=== PATIENT | male | born 1940 | race Caucasian/White ===

== ENCOUNTER → 2018-07-09 | Outpatient (CLI) | payer MEDICARE ==
[2018-07-09 13:48] LABS: PROSTATIC SPECIFIC AG MONITOR < 0.01 NG/ML (< 4.0)
== END ==
LOC: M LAB 11:41
DX: Z08 Encounter for follow-up examination after completed treatment for malignant neoplasm (principal); Z85.46 Personal history of malignant neoplasm of prostate
CPT/HCPCS: 84153

== ENCOUNTER → 2019-07-13 | Outpatient (REF) | payer MEDICARE | LOC: M LABDRAW1 09:27 | PROVIDERS: ATTEND Physician Assistant | DX: Z85.46 Personal history of malignant neoplasm of prostate (principal) ==

== ENCOUNTER → 2019-10-28 | Outpatient (REF) | payer MEDICARE ==
[2019-10-29 16:58] LABS: IRON (FE) 69 UG/DL (65-175); PERCENT SATURATION 18.9 % (19.7-50.0); TOTAL IRON BINDING CAPACITY 366 UG/DL (250-450); TOTAL PROTEIN 8.7 GM/DL (6.4-8.2)
[2019-11-01 09:46] LABS: HEPATITIS B SURFACE ANTIGEN NEGATIVE (NEGATIVE)
[2019-11-01 10:14] LABS: HEPATITIS C VIRUS ABY INDEX 0.1 INDEX (<0.8)
[2019-11-01 10:15] LABS: HEPATITIS B CORE ANTIBODY IGM NEGATIVE (NEGATIVE)
[2019-11-01 10:16] LABS: HEPATITIS A ANTIBODY IGM NEGATIVE (NEGATIVE)
[2019-11-02 11:20] LABS: ALBUMIN 3.85 GM/DL (3.29-5.55); ALBUMIN % 44.3 % (55.8-66.1); ALPHA-1-GLOBULIN % 3.5 % (2.9-4.9); ALPHA-2-GLOBULINS 0.71 GM/DL (0.42-0.99); ALPHA-2-GLOBULINS % 8.2 % (7.1-11.8); BETA-1-GLOBULINS 0.49 GM/DL (0.28-0.60); BETA-1-GLOBULINS % 5.6 % (4.7-7.2); BETA-2-GLOBULINS 0.29 GM/DL (0.19-0.55); BETA-2-GLOBULINS % 3.3 % (3.2-6.5); GAMMA GLOBULIN % 35.1 % (11.1-18.8); GAMMA GLOBULINS 3.05 GM/DL (0.65-1.58)
== END ==
LOC: M LAB REF 16:04
PROVIDERS: ATTEND Internal Medicine
DX: R74.8 Abnormal levels of other serum enzymes (principal); N18.3 Chronic kidney disease, stage 3 (moderate)

== ENCOUNTER 2020-02-15 12:05 | Inpatient (IN) | payer MEDICARE ==
[~2020-02-15] VITALS: Ht 170.2 cm; Wt 67.4 kg
[2020-02-15] MEDS ORDERED: NITR0.4S14 SL (12:26)
[2020-02-15] MEDS ORDERED: GLIM1TAB4 PO (12:26)
[2020-02-15] MEDS ORDERED: TAMS1CAP17 PO (12:26)
[2020-02-15] MEDS ORDERED: ASPI81TA85 PO (12:26)
[2020-02-15] MEDS ORDERED: ATOR40TA75 PO (12:26)
[2020-02-15 13:55] LABS: BASO % 0.5 % (0.0-1.0); EOS # 0.1 10^3/uL (0.0-0.5); EOS % 1.7 % (0.0-3.0); HEMATOCRIT 43.1 % (42.0-52.0); HEMOGLOBIN 14.3 g/dl (13.5-17.5); LYMPH # 1.3 10^3/uL (1.5-5.0); LYMPH % 19.7 % (24.0-44.0); MEAN CORPUSCULAR HEMOGLOBIN 31.8 pg (27.0-33.0); MEAN CORPUSCULAR HGB CONC 33.2 g/dl (32.0-36.5); MONO # 1.1 10^3/uL (0.0-0.8); MONO % 16.5 % (0.0-5.0); NEUTROPHILS # 3.9 10^3/uL (1.5-8.5); NEUTROPHILS % 61.3 % (36.0-66.0); RED BLOOD COUNT 4.49 10^6/uL (4.30-6.10); WHITE BLOOD COUNT 6.4 10^3/uL (4.0-10.0)
[2020-02-15 14:17] LABS: ALBUMIN 2.3 GM/DL (3.2-5.2); BILIRUBIN,DIRECT 1.4 MG/DL (0.0-0.2); BILIRUBIN,TOTAL 2.9 MG/DL (0.2-1.0); CREATININE FOR GFR 1.24 MG/DL (0.70-1.30); POTASSIUM SERUM 3.7 MEQ/L (3.5-5.1); TOTAL PROTEIN 7.5 GM/DL (6.4-8.2)
[2020-02-15 14:38] LABS: PLATELET COUNT, AUTOMATED 65 10^3/uL (150-450)
[2020-02-15] MEDS ORDERED: ISOVUE-370 76% 100ML VIAL As Ordered ONE (16:00)
[2020-02-15] MEDS ORDERED: D 202000 PO (18:29)
[2020-02-15] MEDS ORDERED: DEXTROSE 50% 50 ML SYRINGE IV PRN (18:45)
[2020-02-15] MEDS ORDERED: GLUCOSE 4GM CHEW TABLET PO PRN (18:45)
[2020-02-15] MEDS ORDERED: GLUCAGON INJ 1MG VIAL SC PRN (18:45)
[2020-02-15 19:34] LABS: INR 1.74; PROTHROMBIN TIME 20.1 SECONDS (11.8-14.0)
[2020-02-15 19:35] LABS: PARTIAL THROMBOPLASTIN TIME 36.8 SECONDS (25.0-38.4)
[2020-02-15 20:50] VITALS: BP 129/62
[2020-02-15] MEDS: HumaLOG INSULIN (NovoLOG) PER UNIT SC SCH (21:00)
[2020-02-15 21:15] LABS: HEMOGLOBIN A1c 6.2 %
--- NOTE | 2020-02-15 23:47 | REP ---
CT ABDOMEN AND PELVIS WITH IV CONTRAST: TECHNIQUE: Axial contrast-enhanced images from the lung bases to the pubic symphysis using 100 mL Isovue-370 intravenous contrast material with multiplanar reformations. There is a moderate right pleural effusion. Mild patchy parenchymal opacities seen in the lung bases, right greater than left, representing atelectasis or infiltrate. Liver has a cirrhotic appearance. No enhancing liver mass is seen. The spleen is enlarged with a length of 16.9 cm. There is a small cyst in the posterolateral spleen measuring 1 cm. Portal vein is mildly dilated, compatible with portal hypertension. Adrenals are normal. Pancreas demonstrates no definite abnormality. There is no pancreatic duct dilatation. There appear to be small renal cysts bilaterally without evidence of hydronephrosis. There is mild ectasia of the distal abdominal aorta with no aneurysm. There are atherosclerotic calcifications of the thoracic aorta. Subcentimeter para-aortic lymph nodes are present. There is no free air. There is moderate diffuse abdominal and pelvic ascites. There is diffuse colonic diverticulosis. There is a small umbilical hernia and small bilateral inguinal hernias containing fat. Urinary bladder is not well distended and not well evaluated. Multiple metallic clips are seen in the prostate. There are mild degenerative changes of the spine with no definite suspicious bone lesion. IMPRESSION: Moderate right effusion. Mild bibasilar atelectasis/infiltrate, right greater than left. Moderate diffuse abdominal and pelvic ascites. Cirrhosis of the liver with portal hypertension and mild splenomegaly. Pancreas is grossly unremarkable. This does not exclude pancreatitis. Electronically Signed by Chavez Gipson MD 02/16/2020 09:20 A
[2020-02-16] VITALS (7 sets, daily range): BP systolic 110–136; BP diastolic 57–68
[2020-02-16 00:45] LABS: CK-MB VALUE MASS 3.2 NG/ML (<3.6); MB/CK RELATIVE INDEX 2.19 (< OR =4); TROPONIN I 0.04 NG/ML (< 0.10)
[2020-02-16 06:11] LABS: CK-MB VALUE MASS 2.7 NG/ML (<3.6); MB/CK RELATIVE INDEX 1.84 (< OR =4); THYROID STIMULATING HORMONE 1.49 uIU/ML (0.358-3.740); TROPONIN I 0.04 NG/ML (< 0.10)
[2020-02-16] MEDS: HumaLOG INSULIN (NovoLOG) PER UNIT SC SCH ×4 (07:30→20:07)
[2020-02-16] MEDS: TAMSULOSIN 0.4 MG CAP PO SCH (09:33)
[2020-02-16] MEDS: ATORVASTATIN 20 MG TAB PO SCH (09:33)
--- NOTE | 2020-02-16 13:52 | HPE ---
DATE OF ADMISSION: 02/15/2020 CHIEF COMPLAINT: Shortness of breath. Increasing abdominal distention,weight gain of 20 pounds over the past month. HISTORY OF PRESENT ILLNESS: Jaida hinton is a 79-year-old male with a history of alcoholic liver cirrhosis, chronic obstructive pulmonary disease (COPD), coronary artery disease (CAD), coronary artery bypass graft (CABG)diabetes, hypertension, hypercholesterolemia, glaucoma, hypertensive and diabetic retinopathy and prostate cancer with seed implants and radiation presents to the emergency room with 1-month history of worsening shortness of breath, increase in abdominal distention. The patient has noted increase in weight from 152 to 170 pounds with worsening shortness of breath initially with exertion and is unable to mow his lawn and has to stop two to three times. Even at rest unable to sleep flat on the bed. Patient has had no history of heart failure. Denies any chest pain, pressure, tightness, fever or chills. Patient has had a decrease in appetite and had nausea about a month ago an vomited once then but none since. He presents today for further evaluation. He has a known history of live cirrhosis from alcohol. Previously drank gin and bourbon on the [place], three shots and two beers daily for the past 30 years. Quit alcohol use 3 months ago and follows with Dr. Bentley as an outpatient. He describes the abdominal discomfort throughout but worse in the left lower quadrant. Has gurgling, "like I am going to have a bowel movement". Describes a 3/10 on the pain scale while he is sitting and worse at 8/10. He has not taken any Tylenol or nonsteroidal anti-inflammatory drugs (NSAIDs) for this at home. Patient has had prior history of alcoholic pancreatitis from years ago but has been stable since. Patient otherwise denies any chest pain, pressure or tightness. No history of congestive heart failure in the past but has had, what he says, is quadruple bypass with an inferior myocardial infarction (NC) in 1989. PAST MEDICAL HISTORY: Coronary artery disease (CAD), CABG COPD. Prostate cancer. Type 2 diabetes. Hypertension. Hypercholesterolemia. Diverticulosis. Presbycusis with bilateral hearing aides. Glaucoma, open angle. Hypertensive diabetic retinopathy. Pertussis, measles and mumps. ALLERGIES: Penicillin causing anaphylaxis. PAST SURGICAL HISTORY: Bilateral implants. Prostate cancer with seed implantation, radiation in 2001. Coronary artery disease, myocardial infarction inferior wall. CABG times four vessels 1989. Left ankle open reduction internal fixation (ORIF). Vasectomy 1971. Cholecystectomy 1968. HOME MEDICATIONS: - aspirin 81 daily - atorvastatin 40 daily - glimepiride 1 mg daily - nitroglycerine 0.4 as needed - tamsulosin 0.4 mg daily SOCIAL HISTORY: Patient has smoked a pack of day since the age of 16. Currently decreased to less than 7-8 cigarettes per day. He previously drank gin and bourbon on the rocks about three of them and two beers every day for about 30 years, quit 3 months ago. 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 His is a retired registered nurse. She is the health care proxy. FAMILY HISTORY: Mother , age 43 with cerebrovascular accident (CVA) after nephrectomy. Father age 63 with coronary artery disease and NC and was an alcoholic. REVIEW OF SYSTEMS: Per history of present illness (HPI). 12-point system otherwise negative. PHYSICAL EXAMINATION: Temperature 97.9, pulse 65, respiratory rate 18, blood pressure 135/65, 96% on room air. Generally, patient is awake, alert, oriented times three answering questions appropriately. Anicteric sclerae. No jaundice. No jugular venous distention (JVD) or thyromegaly. Lungs diminished with dullness on the right base. Heart S1, S2, sinus rhythm. No murmurs, rubs or gallops. Patient has a midsternal scar that is well healed. Abdomen is soft. It is distended. Positive fluid waves, left lower quadrant is slightly tender. No rebound or guarding. No abdominal bruits. Extremities: Trace pitting edema. LABORATORY DATA: White count 6.4, hemoglobin 13, hematocrit 43, platelet count 65. Sodium 139, potassium 3.7, chloride 109, bicarbonate 26, BUN 9, creatinine 1.24, glucose 88. Calcium 8, T-bilirubin 2.9, direct bilirubin 1.3, AST 105, ALT 71, alkaline phosphatase 91, total protein 7.5, albumin 2.3, lipase 435. Urinalysis: Trace ketones 1+, bilirubin 4, 0 urobilinogen negative leukocyte esterase, 3 WBC1, RBC. Negative bacteria. IMAGING STUDIES: CT abdomen and pelvis pending official report. ASSESSMENT/PLAN: This is a 79-year-old male with history of coronary artery disease CABG. No prior history of congestive heart failure. Hypertension, hypercholesterolemia, diabetes, chronic obstructive pulmonary disease (COPD), who smoked and drank until about 3 months ago. Hypertensive diabetic retinopathy, liver cirrhosis secondary to alcohol abuse with portal hypertension and ascites. Diverticulosis, prostate cancer, presents to the emergency room with 1-month history of increasing shortness of breath with dyspnea on exertion as well as increasing ascites with abdominal pain in the left lower quadrant along with weight gain of about 17 pounds over the past month. IMPRESSION: 1. Decompensated liver cirrhosis secondary to alcohol abuse. Patient has significant ascites with no fever or chills. Patient is ordered a paracentesis in the morning. Patient's platelet count is 65,000, which is adequate. Will check a PT/INR due to known coagulopathy that occurs with decompensated liver cirrhosis. Patient is currently managed by his primary care physician, has not been referred to a entertainer or variety artist. Last drink was 3 months ago with a good support system. Would encourage outpatient referral to entertainer or variety artist in [place]. MELD score could not be calculated as patient does not have an INR at this time. Will obtain. 2. Pleural effusion secondary to decompensated liver cirrhosis. Will check a 2D echo in light of the prior history of coronary artery disease, inferior wall NC and CABG. 3. Diabetes: Continue on consistent carbohydrate diet. Fluid restriction for ascites. Sliding scale. 4. History of prostate cancer: Status post seed implantation and radiation. Currently stable. Follows with Dr. Judd as an outpatient. 5. Hypercholesterolemia. Check lipid panel in the morning. Continue on atorvastatin. 6. History of CAD and CABG: Hold off on patient's aspirin due to paracentesis and thoracentesis in the morning. [facility]
[2020-02-16 14:05] LABS: APPEARANCE, BODY FLUID HAZY (CLEAR); ASCITES FL COLOR YELLOW (COLORLESS); SOURCE, BODY FLUID ASCITES; SPEC. GRAVITY BODY FLUIDS 1.018 (NOT ESTABLISHED)
[2020-02-16 14:09] LABS: PH BODY FLUID 7.736 UNITS (NOT ESTABLISHED); SOURCE, BODY FLUID pH ASCITES
[2020-02-16 14:27] LABS: AMYLASE, BODY FLUID 50 U/L (NOT ESTABLISHED); LDH, BODY FLUID 77 U/L (NOT ESTABLISHED); SOURCE, BODY FLUID ALBUMIN ASCITES; SOURCE, BODY FLUID AMYLASE ASCITES; SOURCE, BODY FLUID GLUCOSE ASCITES; SOURCE, BODY FLUID LDH ASCITES; SOURCE, BODY FLUID TOT PROTEIN ASCITES; TOTAL PROTEIN, BODY FLUID 2.6 G/DL (NOT ESTABLISHED)
--- NOTE | 2020-02-16 16:15 | IPNPDOC ---
Date Seen The patient was seen on 02/16/20. Progress Note still c/o cough and pleuritic chest pain with coughing fits. no sob. no fever or chills. still with abd discomfort 6/10 at worst when walking. no dizziness. paracentesis today. no other c/o overnight. physical exam vs: pls see below Generally, patient is awake, alert, oriented times three answering questions appropriately. Anicteric sclerae. No jaundice. No jugular venous distention (JVD) or thyromegaly. Lungs diminished with dullness on the right base. Heart S1, S2, sinus rhythm. No murmurs, rubs or gallops. Patient has a midsternal scar that is well healed. Abdomen is soft. It is distended. Positive fluid waves, left lower quadrant is slightly tender. No rebound or guarding. No abdominal bruits. Extremities: Trace pitting edema. LABORATORY DATA: pls see below IMAGING STUDIES: CT abdomen and pelvis pending official report. ASSESSMENT/PLAN: This is a 79-year-old male with history of coronary artery disease CABG. No prior history of congestive heart failure. Hypertension, hypercholesterolemia, diabetes, chronic obstructive pulmonary disease (COPD), who smoked and drank until about 3 months ago. Hypertensive diabetic retinopathy, liver cirrhosis secondary to alcohol abuse with portal hypertension and ascites. Diverticulosis, prostate cancer, presents to the emergency room with 1-month history of increasing shortness of breath with dyspnea on exertion as well as increasing ascites with abdominal pain in the left lower quadrant along with weight gain of about 17 pounds over the past month. IMPRESSION: 1. Decompensated liver cirrhosis secondary to alcohol abuse. Patient has significant ascites with no fever or chills. MELD score 19. s/p paracentesis 02/16/20. albumin infusion and lasix, spironolactone, propranlol 2. Pleural effusion secondary to decompensated liver cirrhosis. Will check a 2D echo in light of the prior history of coronary artery disease, inferior wall NH and CABG.thoracentesis in am. 3. Diabetes: Continue on consistent carbohydrate diet. Fluid restriction for ascites. Sliding scale. 4. History of prostate cancer: Status post seed implantation and radiation. Currently stable. Follows with Dr. Judd as an outpatient. 5. Hypercholesterolemia. Check lipid panel in the morning. Continue on atorvastatin. 6. History of CAD and CABG: Hold off on patient's aspirin due to thoracentesis in the morning. VS, I&O, 24H, Fishbone Vital Signs/I&O Vital Signs Date Time Temp Pulse Resp B/P (MAP) Pulse Ox O2 Delivery O2 Flow Rate FiO2 02/16/20 13:56 97.7 93 18 119/57 (77) 90 Room Air I&O- Last 24 Hours up to 6 AM 02/16/20 06:00 Intake Total 300 ml Output Total 300 ml Balance 0 ml Laboratory Data 24H LABS Laboratory Tests 2 02/15/20 19:01: Prothrombin Time 20.1H, Prothromb Time International Ratio 1.74, Activated Part ial Thromboplast Time 36.8, Estimated Mean Plasma Glucose 131H, Hemoglobin A1c 6.2 02/15/20 20:51: Bedside Glucose (Misc Panel) 132H 02/15/20 23:59: Total Creatine Kinase 146, Creatine Kinase MB 3.2, Creatine Kinase MB Relative Index 2.19, Troponin I 0.04 02/16/20 04:40: Bedside Glucose (Misc Panel) 89 02/16/20 05:08: Total Creatine Kinase 147, Creatine Kinase MB 2.7, Creatine Kinase MB Relative Index 1.84, Troponin I 0.04, Triglycerides Level 79, Total Cholesterol 60, LDL Cholesterol 24, Non-HDL Cholesterol (LDL + VLDL) 40, Total HDL Cholesterol 20L, Cholesterol/HDL Ratio 3.000, Thyroid Stimulating Hormone (TSH) 1.490 02/16/20 11:28: Bedside Glucose (Misc Panel) 73L 02/16/20 12:50: Body Fluid Source ASCITES, Body Fluid Color YELLOW, Body Fluid Appearance HAZY, Body Fluid Specific Gratis 1.018, Body Fluid pH 7.736, Body Fluid pH Source ASCITES, Body Fluid WBC (Auto) 561H, Body Fluid RBC (Auto) 3, Body Fluid Mononuclear Cells % Auto 96.3H, Fluid Polymorphonuclear Cell % Auto 3.7H, Body Fluid Glucose Source ASCITES, Body Fluid Glucose 88, Body Fluid Protein Source ASCITES, Body Fluid Total Protein 2.6, Body Fluid Albumin Source ASCITES, Body Fluid Albumin 0.8, Body Fluid LDH Source ASCITES, Body Fluid Lactate Dehydrogenase 77, Body Fluid Amylase Source ASCITES, Body Fluid Amylase 50 Microbiology Microbiology 02/16/20 Acid Fast Stain, Received Pending 02/16/20 Mycobacterial Culture, Received Pending 02/16/20 Fungal Smear, Received Pending 02/16/20 Fungal Culture, Received Pending 02/16/20 Gram Stain - Final, Resulted 02/16/20 Body Fluid Culture, Resulted Pending ESDRAS LANDERS MD February 16, 2020 16:11
[2020-02-16] MEDS: SPIRONOLACTONE 25 MG TAB PO SCH (17:05)
[2020-02-16] MEDS: FUROSEMIDE 20MG/2ML VIAL (J1940) IV SCH ×2 (17:06→22:58)
[2020-02-16 17:26] LABS: ALBUMIN 1.9 GM/DL (3.2-5.2); BILIRUBIN,TOTAL 1.9 MG/DL (0.2-1.0); CALCIUM LEVEL 7.8 MG/DL (8.8-10.2); CREATININE FOR GFR 1.29 MG/DL (0.70-1.30); GLOMERULAR FILTRATION RATE 57.3 (>42); TOTAL PROTEIN 6.2 GM/DL (6.4-8.2)
[2020-02-16 17:32] LABS: BASO % 0.4 % (0.0-1.0); EOS # 0.1 10^3/uL (0.0-0.5); EOS % 1.9 % (0.0-3.0); HEMATOCRIT 38.4 % (42.0-52.0); HEMOGLOBIN 12.8 g/dl (13.5-17.5); LYMPH % 20.9 % (24.0-44.0); MEAN CORPUSCULAR HEMOGLOBIN 32.5 pg (27.0-33.0); MEAN CORPUSCULAR HGB CONC 33.3 g/dl (32.0-36.5); MEAN CORPUSCULAR VOLUME 97.5 fl (80.0-96.0); MONO # 0.8 10^3/uL (0.0-0.8); NEUTROPHILS # 2.8 10^3/uL (1.5-8.5); NEUTROPHILS % 59.4 % (36.0-66.0); RED BLOOD COUNT 3.94 10^6/uL (4.30-6.10); WHITE BLOOD COUNT 4.7 10^3/uL (4.0-10.0)
[2020-02-16 17:43] LABS: PLATELET COUNT, AUTOMATED 55 10^3/uL (150-450)
[2020-02-16] MEDS ORDERED: ALPRAZolam 0.5 MG TAB PO PRN (19:00)
[2020-02-16] MEDS ORDERED: ALPRAZolam 0.5 MG TAB PO ONE (19:00)
[2020-02-16] MEDS: PROPRANOLOL 10 MG TAB PO SCH (20:03)
[2020-02-17] VITALS (9 sets, daily range): BP systolic 102–115; BP diastolic 49–63
[2020-02-17] MEDS: FUROSEMIDE 20MG/2ML VIAL (J1940) IV SCH (05:20)
[2020-02-17 08:11] LABS: HEMATOCRIT 39.4 % (42.0-52.0); HEMOGLOBIN 13.1 g/dl (13.5-17.5); MEAN CORPUSCULAR HEMOGLOBIN 31.7 pg (27.0-33.0); MEAN CORPUSCULAR HGB CONC 33.2 g/dl (32.0-36.5); MEAN CORPUSCULAR VOLUME 95.4 fl (80.0-96.0); RED BLOOD COUNT 4.13 10^6/uL (4.30-6.10); WHITE BLOOD COUNT 5.4 10^3/uL (4.0-10.0)
[2020-02-17 08:20] LABS: PLATELET COUNT, AUTOMATED 60 10^3/uL (150-450)
[2020-02-17] MEDS: ATORVASTATIN 20 MG TAB PO SCH (08:20)
[2020-02-17] MEDS: HumaLOG INSULIN (NovoLOG) PER UNIT SC SCH ×2 (08:20→12:00)
[2020-02-17] MEDS: SPIRONOLACTONE 25 MG TAB PO SCH (08:21)
[2020-02-17] MEDS: PROPRANOLOL 10 MG TAB PO SCH (08:21)
[2020-02-17] MEDS: TAMSULOSIN 0.4 MG CAP PO SCH (08:21)
--- NOTE | 2020-02-17 08:23 | ECHO ---
DATE OF STUDY: 02/16/2020 REFERRING PHYSICIAN: Dr. Minoo Avila INDICATION: Dyspnea. HEIGHT: 170 cm. WEIGHT: 74 kg. 2-D MEASUREMENTS: Aortic root: 3.1 cm Left atrium: 4.3 cm Ventricular septum: 1.28 cm Posterior wall: 1.02 cm Left ventricle diastole: 4.8 cm Aortic annulus: 1.9 cm Inferior vena cava: 1.2 cm (more than 50% respiratory variation) DOPPLER MEASUREMENTS: No aortic regurgitation No aortic stenosis Aortic valve velocity: 143 cm/sec LVOT velocity: 90.3 cm/sec LVOT VTI: 18.9 cm Trace mitral regurgitation Mitral E velocity: 54.3 cm/sec Mitral A velocity: 90.7 cm/sec Mitral deceleration time: 333 ms Very mild tricuspid regurgitation Estimated right ventricular systolic pressure 26-31 mmHg assuming a right atrial pressure of 5-10 mmHg Pulmonary acceleration time: 100 ms MITRAL ANNULAR TISSUE DOPPLER: E prime septal: 7.3 cm/sec E prime lateral: 11.4 cm/sec DESCRIPTION: The rhythm was sinus. Image quality was good. Occasional PVCs. This was a 2-D, M-mode, color flow Doppler and pulse wave Doppler examination and included mitral annular tissue Doppler. CONCLUSIONS: 1. Mild focal hypertrophy of the basal anterior ventricular septum. No dynamic LVOT obstruction. Normal regional LV wall motion and wall thickening. Normal LV systolic function. LVEF 60% by visual estimate. Grade 1 LV diastolic dysfunction (impaired relaxation filling pattern). 2. Mild left atrial dilatation. 3. Small pericardial effusion. No diastolic chamber collapse. No significant respiratory variation of intracardiac velocities. 4. Very mild aortic valve sclerosis of a 3-cuspid aortic valve. No aortic regurgitation. 5. Bilateral pleural effusions.
[2020-02-17 08:41] LABS: ALBUMIN 2.1 GM/DL (3.2-5.2); BILIRUBIN,TOTAL 1.7 MG/DL (0.2-1.0); CALCIUM LEVEL 7.9 MG/DL (8.8-10.2); CREATININE FOR GFR 1.31 MG/DL (0.70-1.30); GLOMERULAR FILTRATION RATE 56.3 (>42); POTASSIUM SERUM 3.5 MEQ/L (3.5-5.1); TOTAL PROTEIN 6.7 GM/DL (6.4-8.2)
--- NOTE | 2020-02-17 10:08 | REP ---
CHEST, SINGLE VIEW: Single view of the chest is performed. COMPARISON: CT 02/15/2020 and chest 06/24/2008. There is likely a subpulmonic right effusion. There is adjacent right basilar atelectasis/infiltrate. The left lung is clear. The heart is not enlarged. There is calcification and tortuosity of the thoracic aorta. Multiple sternal wires are present. Electronically Signed by Chavez Gipson MD 02/17/2020 12:40 P
[2020-02-17 10:11] LABS: MAGNESIUM LEVEL 1.5 MG/DL (1.8-2.4)
--- NOTE | 2020-02-17 11:14 | REP ---
Ultrasound-guided paracentesis The procedure was performed under the direct supervision of Dr. Gipson. The risks and benefits of the procedure were explained to the patient and informed consent was obtained. The largest pocket of fluid was localized in the left upper quadrant using ultrasound guidance. The skin was prepped and draped in a sterile fashion. 1% lidocaine was used as a local anesthetic. Using ultrasound guidance and 8-Czech multi side-hole catheter was inserted using trocar technique. 3200 ml of yellow fluid was withdrawn with a sample sent to the lab for analysis. The patient tolerated the procedure well and there were no immediate complications. After the appropriate amount of monitored convalescence the patient was discharged from the department. Electronically Signed by ILIA Hernandez 02/16/2020 05:20 P Electronically Signed by Chavez Gipson MD 02/17/2020 11:05 A
[2020-02-17 13:11] LABS: PH BODY FLUID 7.682 UNITS (NOT ESTABLISHED); SOURCE, BODY FLUID pH PLEURAL
[2020-02-17 13:31] LABS: AMYLASE, BODY FLUID 52 U/L (NOT ESTABLISHED); CHOLESTEROL, BODY FLUID < 50 MG/DL (NOT ESTABLISHED); LDH, BODY FLUID 146 U/L (NOT ESTABLISHED); SOURCE, BODY FLUID ALBUMIN PLEURAL; SOURCE, BODY FLUID AMYLASE PLEURAL; SOURCE, BODY FLUID CHOL PLEURAL; SOURCE, BODY FLUID GLUCOSE PLEURAL; SOURCE, BODY FLUID LDH PLEURAL; SOURCE, BODY FLUID TOT PROTEIN PLEURAL; SOURCE, BODY FLUID TRIG PLEURAL; TOTAL PROTEIN, BODY FLUID 3.5 G/DL (NOT ESTABLISHED); TRIGLYCERIDE, BODY FLUID 24 MG/DL (NOT ESTABLISHED)
[2020-02-17 13:45] LABS: APPEARANCE, BODY FLUID CLOUDY (CLEAR); PLEURAL FL COLOR YELLOW (COLORLESS); SOURCE, BODY FLUID PLEURAL
[2020-02-17 14:21] LABS: BLOOD UREA NITROGEN 13 MG/DL (7-18); CALCIUM LEVEL 7.5 MG/DL (8.8-10.2); CARBON DIOXIDE LEVEL 24 MEQ/L (21-32); CHLORIDE LEVEL 107 MEQ/L (98-107); GLOMERULAR FILTRATION RATE > 60.0 (>42); GLUCOSE, FASTING 140 MG/DL (70-100); POTASSIUM SERUM 3.3 MEQ/L (3.5-5.1); SODIUM LEVEL 136 MEQ/L (136-145)
[2020-02-17] MEDS ORDERED: SPIR-10 PO (15:29)
[2020-02-17] MEDS ORDERED: POTASSIUM CHLORIDE 10 MEQ SR TABLET PO ONE (15:30)
[2020-02-17] MEDS ORDERED: SELF1KIT MC (15:30)
--- NOTE | 2020-02-17 15:46 | REP ---
CHEST, TWO VIEWS: Two views of the chest was performed status post right thoracentesis. There is decreased right pleural fluid which appeared to be subpulmonic on prior chest radiograph today. Residual parenchymal opacity in the right lung base. There is no pneumothorax. Left lung remains clear. Heart and mediastinum are unchanged. IMPRESSION: No pneumothorax status post right thoracentesis with decreased right pleural fluid. Electronically Signed by Chavez Gipson MD 02/17/2020 05:06 P
--- NOTE | 2020-02-17 17:12 | REP ---
ULTRASOUND-GUIDED RIGHT THORACENTESIS The procedure was performed under the direct supervision of Dr. Gipson. The risks and benefits of the procedure were explained to the patient and informed consent was obtained. The right pleural effusion was localized using ultrasound guidance. The skin was prepped and draped in a sterile fashion. 1% lidocaine was used as a local anesthetic. An 8-Chinese multi side-hole catheter was inserted using trocar technique. 1100 ml of demetrius colored fluid was withdrawn with a sample sent to lab for analysis. The patient tolerated the procedure well and there were no immediate complications. After the appropriate amount of monitored convalescence the patient was discharged from the department. Electronically Signed by ILIA Hernandez 02/17/2020 02:59 P Electronically Signed by Chavez Gipson MD 02/17/2020 05:02 P
== END 2020-02-17 16:40 | disposition home or self-care (01) | DRG 433 ==
LOC: M ED 12:05 → M ED INP 17:55 → ENRESERV 19:15 → M MS5PR 20:50
PROVIDERS: ADMIT General Practice; ATTEND General Practice
PROC: 0W9G3ZZ Drainage of Peritoneal Cavity, Percutaneous Approach (ICD-10-PCS; principal; 2020-02-16 14:00)
PROC: 0W993ZZ Drainage of Right Pleural Cavity, Percutaneous Approach (ICD-10-PCS; 2020-02-17)
DX: K70.31 Alcoholic cirrhosis of liver with ascites (principal); K76.6 Portal hypertension; J90 Pleural effusion, not elsewhere classified; J44.9 Chronic obstructive pulmonary disease, unspecified; E11.319 Type 2 diabetes mellitus with unspecified diabetic retinopathy without macular edema; I10 Essential (primary) hypertension; E78.00 Pure hypercholesterolemia, unspecified; I25.10 Atherosclerotic heart disease of native coronary artery without angina pectoris; H40.10X0 Unspecified open-angle glaucoma, stage unspecified; Z85.46 Personal history of malignant neoplasm of prostate; Z92.3 Personal history of irradiation; H91.13 Presbycusis, bilateral; Z97.4 Presence of external hearing-aid; Z79.82 Long term (current) use of aspirin; Z79.84 Long term (current) use of oral hypoglycemic drugs; Z79.899 Other long term (current) drug therapy; F17.210 Nicotine dependence, cigarettes, uncomplicated; Z95.1 Presence of aortocoronary bypass graft; Z88.0 Allergy status to penicillin

== ENCOUNTER → 2020-04-27 | Outpatient (REF) | payer MEDICARE ==
[~2020-04-27] MED LIST: ASPI-161 PO; ASPI81TA86 PO; ATOR40TA75 PO; D 202000 PO; FURO20TA2 PO; GLIM1TAB4 PO; LEVA750T7 PO; MAGN400T2 PO; NITR0.4S14 SL; OMEP-218 PO; SELF1KIT MC; SPIR-10 PO; TAMS1CAP17 PO
== END ==
LOC: M LAB REF 16:23
PROVIDERS: ATTEND Internal Medicine
DX: K70.31 Alcoholic cirrhosis of liver with ascites (principal)

== ENCOUNTER → 2020-04-28 | Outpatient (REF) | payer MEDICARE ==
[2020-05-27 01:07] LABS: INR 1.54; PARTIAL THROMBOPLASTIN TIME 41.2 SECONDS (25.0-38.4); PROTHROMBIN TIME 18.8 SECONDS (11.8-14.0)
== END ==
LOC: M LAB REF 11:53
PROVIDERS: ATTEND Internal Medicine
DX: K70.31 Alcoholic cirrhosis of liver with ascites (principal)

== ENCOUNTER → 2020-05-11 | Outpatient (CLI) | payer MEDICARE ==
[2020-05-11 13:34] VITALS: BP 142/64
--- NOTE | 2020-06-16 11:15 | REP ---
LIMITED FOUR QUADRANT ULTRASOUND TO ASSESS FOR ASCITES Four quadrant ultrasonography was performed to assess for degree of ascites. A minimal amount of fluid is seen in all four quadrants, likely insufficient for paracentesis MTDD
== END ==
LOC: M IRPRO 12:04
PROVIDERS: ATTEND Internal Medicine
DX: K70.31 Alcoholic cirrhosis of liver with ascites (principal); Z53.8 Procedure and treatment not carried out for other reasons

== ENCOUNTER → 2020-05-31 | Outpatient (REF) | payer MEDICARE ==
[2020-05-31 19:23] LABS: FOLATE 8.4 NG/ML
== END ==
LOC: M LAB REF 18:15
PROVIDERS: ATTEND Internal Medicine
DX: R53.82 Chronic fatigue, unspecified (principal)

== ENCOUNTER 2020-06-19 19:54 | Inpatient (IN) | payer MEDICARE ==
[~2020-06-19] VITALS: Ht 175.3 cm; Wt 66.4 kg
[~2020-06-19 19:54] MED LIST changes: -ASPI-161 PO; -FURO20TA2 PO; -LEVA750T7 PO; -MAGN400T2 PO; -OMEP-218 PO
[2020-06-19] MEDS ORDERED: NS 1,000 ML IV ONE (20:30)
[2020-06-19] MEDS ORDERED: ACETAMINOPHEN TAB 650MG DOSE (2X325MG) PO ONE (20:30)
[2020-06-19 21:18] LABS: BASO % 0.3 % (0.0-1.0); EOS % 0.3 % (0.0-3.0); HEMATOCRIT 30.7 % (42.0-52.0); HEMOGLOBIN 10.3 g/dl (13.5-17.5); LYMPH # 0.2 10^3/uL (1.5-5.0); LYMPH % 4.4 % (24.0-44.0); MEAN CORPUSCULAR HEMOGLOBIN 32.9 pg (27.0-33.0); MEAN CORPUSCULAR HGB CONC 33.6 g/dl (32.0-36.5); MEAN CORPUSCULAR VOLUME 98.1 fl (80.0-96.0); MONO # 0.4 10^3/uL (0.0-0.8); MONO % 11.7 % (0.0-5.0); NEUTROPHILS % 82.7 % (36.0-66.0); RED BLOOD COUNT 3.13 10^6/uL (4.30-6.10); WHITE BLOOD COUNT 3.6 10^3/uL (4.0-10.0)
[2020-06-19 21:20] LABS: PLATELET COUNT, AUTOMATED 47 10^3/uL (150-450)
[2020-06-19 21:56] LABS: ALT/SGPT 29 U/L (12-78); BILIRUBIN,DIRECT 0.6 MG/DL (0.0-0.2); BILIRUBIN,TOTAL 1.3 MG/DL (0.2-1.0); BLOOD UREA NITROGEN 18 MG/DL (7-18); CALCIUM LEVEL 7.1 MG/DL (8.8-10.2); CARBON DIOXIDE LEVEL 16 MEQ/L (21-32); CHLORIDE LEVEL 117 MEQ/L (98-107); CK-MB VALUE MASS 2.2 NG/ML (<3.6); CPK CREATINE PHOSPHOKINASE 81 U/L (39-308); CREATININE FOR GFR 1.18 MG/DL (0.70-1.30); GLOMERULAR FILTRATION RATE > 60.0 (>42); GLUCOSE, FASTING 163 MG/DL (70-100); MB/CK RELATIVE INDEX 2.72 (< OR =4); NT-PRO BNP 646 PG/ML (<450); POTASSIUM SERUM 3.3 MEQ/L (3.5-5.1); SODIUM LEVEL 144 MEQ/L (136-145); THYROID STIMULATING HORMONE 0.945 uIU/ML (0.358-3.740); THYROXINE (T4) 7.7 UG/DL (4.5-12.0); TOTAL PROTEIN 5.9 GM/DL (6.4-8.2); TROPONIN I 0.07 NG/ML (< 0.10)
[2020-06-19] MEDS ORDERED: OMEP-218 PO (22:06)
--- NOTE | 2020-06-19 22:42 | REPVR ---
PROCEDURE INFORMATION: Exam: XR Chest, 1 View Exam date and time: 06/19/2020 8:30 PM Age: 79 years old Clinical indication: Shortness of breath; Additional info: Dyspnea/cough TECHNIQUE: Imaging protocol: XR of the chest Views: 1 view. COMPARISON: CR POST BX CHEST 02/17/2020 12:11 PM FINDINGS: Lungs: Degree of lung inflation is normal. No evidence of pulmonary edema. No focal consolidation or parenchymal lung mass. Pleural space: No pleural effusion or pneumothorax. Heart/Mediastinum: Cardiac silhouette appears normal. No adenopathy or hilar mass. Bones/joints: Osseous structures show no concerning abnormality. Median sternotomy changes are present. IMPRESSION: No acute or focal cardiopulmonary process. Electronically signed by: aCrlo Pelayo On 06/19/2020 22:41:58 PM
[2020-06-19] MEDS ORDERED: ISOVUE-370 76% 100ML VIAL As Ordered ONE (23:31)
[2020-06-20] VITALS (18 sets, daily range): BP systolic 100–134; BP diastolic 40–67
--- NOTE | 2020-06-20 00:05 | REPVR ---
PROCEDURE INFORMATION: Exam: CT Abdomen And Pelvis With Contrast Exam date and time: 06/19/2020 11:43 PM Age: 79 years old Clinical indication: Fever; Additional info: Fever unknown origin, prostate cancer TECHNIQUE: Imaging protocol: Computed tomography of the abdomen and pelvis with intravenous contrast. Radiation optimization: All CT scans at this facility use at least one of these dose optimization techniques: automated exposure control; mA and/or kV adjustment per patient size (includes targeted exams where dose is matched to clinical indication); or iterative reconstruction. Contrast material: ISOVUE 370; Contrast volume: 100 ml; Contrast route: INTRAVENOUS (IV); COMPARISON: SR CT ABD/PEL W/IV CONTRAST ONLY 02/15/2020 4:08 PM FINDINGS: Liver: Liver appears cirrhotic with nodular peripheral contours. No focal hepatic lesion. Gallbladder and bile ducts: Gallbladder is surgically absent. Pancreas: Pancreas appears normal. No focal mass or peripancreatic inflammation. Spleen: Spleen is enlarged with no focal hepatic lesion aside from a stable posterior splenic cyst. Adrenals: Adrenal glands are normal in appearance. Kidneys and ureters: Kidneys are unremarkable aside from an upper pole left renal cyst, stable. Stomach and bowel: No evidence of small bowel obstruction. Diverticular changes are present within the colon without inflammation. Appendix: Appendix is not seen. No RLQ inflammation to suggest appendicitis. Intraperitoneal space: No pneumoperitoneum. Small volume of perihepatic and perisplenic free fluid is present an fluid is also present in the pelvis, with transudate density. No organized collection. Vasculature: No aortic aneurysm. Main portal and splenic veins enhance normally. Lymph nodes: No bulky retroperitoneal or mesenteric lymphadenopathy. Urinary bladder: Urinary bladder appears normal. Reproductive: Brachy therapy implants are seen in the prostate. Bones/joints: Bony structures show no acute fracture or destructive process. Soft tissues: No concerning focal abnormality of the extra-abdominal and pelvic soft tissues. IMPRESSION: 1. Cirrhosis, splenomegaly and moderate volume ascites. No localized fluid collection. 2. Colonic diverticulosis without evidence of active inflammation. 3. No CT evidence of intra-abdominal or pelvic metastatic disease. Electronically signed by: Carlo Pelayo On 06/20/2020 00:05:03 AM
--- NOTE | 2020-06-20 00:07 | REPVR ---
PROCEDURE INFORMATION: Exam: CT Chest With Contrast Exam date and time: 06/19/2020 11:43 PM Age: 79 years old Clinical indication: Fever; Additional info: Fever unknown origin, prostate cancer TECHNIQUE: Imaging protocol: Computed tomography of the chest with intravenous contrast. Radiation optimization: All CT scans at this facility use at least one of these dose optimization techniques: automated exposure control; mA and/or kV adjustment per patient size (includes targeted exams where dose is matched to clinical indication); or iterative reconstruction. Contrast material: ISOVUE 370; Contrast volume: 100 ml; Contrast route: INTRAVENOUS (IV); COMPARISON: CR PORTABLE CHEST X-RAY 06/19/2020 10:28 PM FINDINGS: Lungs: Pulmonary vascular/interstitial pattern does not suggest active pulmonary edema. No suspicious lung mass or air space process. No central endobronchial lesion. Pleural space: No pneumothorax. Miniscule posterior right pleural effusion.. Heart: Median sternotomy and coronary bypass changes are present. No overt cardiac enlargement or abnormal volume of pericardial fluid. Aorta: No thoracic aortic aneurysm or dissection. Lymph nodes: No enlarged mediastinal lymph nodes. No enlarged axillary lymph nodes. Bones/joints: Bony structures show no acute fracture or destructive process. IMPRESSION: 1. No acute or concerning focal thoracic abnormality and no evidence of thoracic metastatic disease. 2. Miniscule dependent right pleural effusion which may be pleural ascites, related to the abdominal ascites. Electronically signed by: Cralo Pelayo On 06/20/2020 00:07:16 AM
[2020-06-20] MEDS ORDERED: NS 1,000 ML IV ONE (01:00)
[2020-06-20] MEDS ORDERED: SPIR-10 PO (01:07)
[2020-06-20] MEDS ORDERED: MAGN400T2 PO (01:07)
[2020-06-20] MEDS ORDERED: FURO20TA2 PO (01:07)
[2020-06-20] MEDS ORDERED: ASPI-161 PO (01:07)
[2020-06-20] MEDS ORDERED: ACETAMINOPHEN TAB 650MG DOSE (2X325MG) PO PRN (01:45)
[2020-06-20] MEDS ORDERED: HEPARIN SOD (PORCINE) 5000UNITS/ML 1ML VIAL/SYRINGE SC SCH (01:45)
--- NOTE | 2020-06-20 01:46 | HPEPDOC ---
General Date of Admission 06/20/20 Date of Service: Jun 20, 2020 Chief Complaint The patient is a 79-year-old male admitted with a reason for visit of Fever. Source: Patient Exam Limitations: No limitations Timing/Duration: 24 hours Severity: Moderate Associated Symptoms: Weakness History of Present Illness Patient is 79 years old male with past medical history of alcoholic liver cirr hosis, chronic obstructive pulmonary disease (COPD), coronary artery disease (CAD), coronary artery bypass graft (CABG)diabetes, hypertension,hypercholesterolemia, glaucoma, hypertensive and diabetic retinopathy and prostate cancer presented to the hospital with low-grade fever and shakiness. Patient stated that for past few days he has been having rigors and low-grade fever. He denied diarrhea, abdominal pain, nausea, vomiting. In ER patient was found to have leukocytes 3.6, lactic acid 4.9, BNP 646. CT chest showed Miniscule dependent right pleural effusion which may be pleural ascites, related to the abdominal ascites. CT of abdomen and pelvis showed Cirrhosis, splenomegaly and moderate volume ascites Home Medications Scheduled Aspirin (Aspirin EC) 81 Mg Tablet.dr, 81 MG PO DAILY, (Reported) Atorvastatin Calcium (Atorvastatin Calcium) 40 Mg Tablet, 40 MG PO DAILY, (Reported) Cholecalciferol (Vitamin D3) (Vitamin D3) 50 Mcg Tablet, 50 MCG PO DAILY, (Reported) Furosemide (Furosemide) 20 Mg Tablet, 20 MG PO DAILY, (Reported) Glimepiride (Glimepiride) 1 Mg Tablet, 1 MG PO DAILY, (Reported) Magnesium Oxide (Magnesium Oxide) 400 Mg Tablet, 400 MG PO BID, (Reported) Omeprazole (Omeprazole) 20 Mg Capsule.dr, 20 MG PO DAILY, (Reported) Spironolactone (Spironolactone) 25 Mg Tablet, 25 MG PO DAILY, (Reported) Tamsulosin Hcl (Tamsulosin HCl) 0.4 Mg Capsule, 0.4 MG PO DAILY, (Reported) Scheduled PRN Nitroglycerin (Nitroglycerin) 0.4 Mg Tab.subl, 0.4 MG SL NITRO PRN for CHEST PAIN, (Reported) Allergies Coded Allergies: Penicillins (Verified Allergy, Severe, RASH AND THROAT SWELLING, 02/15/20) niacin (Verified Allergy, Unknown, 06/20/20) ramipril (Verified Allergy, Unknown, 06/20/20) varenicline (Verified Adverse Reaction, Intermediate, HALLUCINATIONS, WEIRD DREAMS, 06/20/20) Past Medical History Medical History Coronary artery disease (CAD), CABG COPD. Prostate cancer. Type 2 diabetes. Hypertension. Hypercholesterolemia. Diverticulosis. Presbycusis with bilateral hearing aides. Glaucoma, open angle. Hypertensive diabetic retinopathy. Pertussis, measles and mumps. Surgical History Bilateral implants. Prostate cancer with seed implantation, radiation in 2001. Coronary artery disease, myocardial infarction inferior wall. CABG times four vessels 1989. Left ankle open reduction internal fixation (ORIF). Vasectomy 1971. Cholecystectomy 1968. Family History Mother , age 43 with cerebrovascular accident (CVA) after nephrectomy. Father age 63 with coronary artery disease and MA and was an alcoholic. Social History * Smoker: current smoker Alcohol: sober Drugs: denies A-FIB/CHADSVASC A-FIB History Current/History of A-Fib/PAF?: No Current PO Anticoag Therapy: No Review of Systems Constitutional: Reports: Chills, Fever Eyes: Denies: Pain ENT: Denies: Head Aches Skin: Denies: Rash, Lesions Pulmonary: Denies: Dyspnea Cardiovascular: Denies: Chest Pain Gastrointestinal: Denies: Nausea, Vomiting Genitourinary: Denies: Dysuria Hematologic: Denies: Bruising, Bleeding Excessively Endocrine: Denies: Polydipsia, Polyphagia Musculoskeletal: Denies: Neck Pain, Back Pain Neurological: Denies: Weakness Psych: Reports: Mood Normal Physical Examination General Exam: Positive: Alert, Cooperative Eye Exam: Positive: PERRLA ENT Exam: Positive: Atraumatic Neck Exam: Positive: Supple; Negative: JVD Chest Exam: Positive: Rales, Diminished Heart Exam: Positive: Rate Normal Telemetry: Positive: Sinus Abdomen Exam: Positive: Normal bowel sounds Extremity Exam: Positive: Clubbing; Negative: Cyanosis Skin Exam: Positive: Nl turgor and temperature Neuro Exam: Positive: Normal Gait, Strength at 5/5 X4 ext Vital Signs Vital Signs Date Time Temp Pulse Resp B/P (MAP) Pulse Ox O2 Delivery O2 Flow Rate FiO2 06/19/20 23:24 99.8 75 18 118/58 (78) 95 Room Air Laboratory Data Labs 24H Laboratory Tests 2 06/19/20 21:05: Immature Granulocyte % (Auto) 0.6, Neutrophils (%) (Auto) 82.7H, Lymphocytes (%) (Auto) 4.4L, Monocytes (%) (Auto) 11.7H, Eosinophils (%) (Auto) 0.3, Basophils (%) (Auto) 0.3, Neutrophils # (Auto) 3.0, Lymphocytes # (Auto) 0.2L, Monocytes # (Auto) 0.4, Eosinophils # (Auto) 0.0, Basophils # (Auto) 0.0, Nucleated Red Blood Cells % (auto) 0.0, Immature Platelet Fraction 4.1, Urine Color YELLOW, Urine Appearance CLEAR, Urine pH 5.0, Urine Specific [place] 1.011, Urine Protein NEGATIVE, Urine Glucose (UA) NEGATIVE, Urine Ketones NEGATIVE, Urine Blood NEGATIVE, Urine Nitrite NEGATIVE, Urine Bilirubin NEGATIVE, Urine Urobilinogen 4.0H, Urine Leukocyte Esterase NEGATIVE, Urine WBC (Auto) 1, Urine RBC (Auto) 3, Urine Hyaline Casts (Auto) 0, Urine Bacteria (Auto) NEGATIVE, Urine Squamous Epithelial Cells 0, Urine Sperm (Auto) , Anion Gap 11, Glomerular Filtration Rate > 60.0, Lactic Acid Level 4.9*H, Calcium Level 7.1L, Total Bilirubin 1.3H, Direct Bilirubin 0.6H, Aspartate Amino Transf (AST/SGOT) 39H, Alanine Aminotransferase (ALT/SGPT) 29, Alkaline Phosphatase 101, Total Creatine Kinase 81, Creatine Kinase MB 2.2, Creatine Kinase MB Relative Index 2.72, Troponin I 0.07, JW-Ohu-[id number]-Type Natriuretic Peptide 646H, Total Protein 5.9L, Albumin 2.0L, Albumin/Globulin Ratio 0.5, Thyroid Stimulating Hormone (TSH) 0.945, Thyroxine (T4) 7.7 06/19/20 21:15: Bedside Glucose (Misc Panel) 194H CBC/BMP Laboratory Tests 06/19/20 21:05 Microbiology Microbiology 06/19/20 Respiratory Virus Panel (PCR) (CAM) - Final, Complete 06/19/20 Blood Culture, Received Pending 06/19/20 Blood Culture, Received Pending Assessment/Plan Patient is 79 years old male with past medical history of alcoholic liver cirrhosis, chronic obstructive pulmonary disease (COPD), coronary artery disease (CAD), coronary artery bypass graft (CABG)diabetes, hyperte nsion,hypercholesterolemia, glaucoma, hypertensive and diabetic retinopathy and prostate cancer presented to the hospital with low-grade fever and shakiness. Patient stated that for past few days he has been having rigors and low-grade fever. He denied diarrhea, abdominal pain, nausea, vomiting. In ER patient was found to have leukocytes 3.6, lactic acid 4.9, BNP 646. CT chest showed Miniscule dependent right pleural effusion which may be pleural ascites, related to the abdominal ascites. CT of abdomen and pelvis showed Cirrhosis, splenomegaly and moderate volume ascites Problems (1) Sepsis Status: Acute Problem Text: Patient has fever, leukopenia and elevated lactic acid CT showed moderate amount of ascites with increase lactic acid. There is high risk of deterioration due to possible underlying infectious process. Patient immunocompromised due to advanced cirrhosis. Blood culture I will start empirically cefepime IV Consider in the morning diagnostic paracentesis in order to rule out SBP (2) Alcoholic hepatitis with ascites Status: Chronic Problem Text: Patient has history of cirrhosis due to alcoholism His fever can be attributed to alcoholic hepatitis (3) Hyperlipidemia Status: Chronic Problem Text: Continue statin (4) Diabetes mellitus Status: Chronic Problem Text: Diabetes diet Insulin sliding scale Plan / VTE VTE Prophylaxis Ordered?: Yes SALEEM GREWAL DO Jun 20, 2020 01:46
[2020-06-20] MEDS ORDERED: GLUCOSE 4GM CHEW TABLET PO PRN ×2 (02:00→16:45)
[2020-06-20] MEDS ORDERED: DEXTROSE 50% 50 ML SYRINGE IV PRN ×2 (02:00→16:45)
[2020-06-20] MEDS ORDERED: GLUCAGON INJ 1MG VIAL SC PRN ×2 (02:00→16:45)
[2020-06-20] MEDS ORDERED: CEFEPIME HCL 2 GM in D5W MINI-BAG PLUS 50 ML IV SCH (02:00)
[2020-06-20] MEDS ORDERED: NITROGLYCERIN 0.4 MG SUBL TABLET SL PRN (02:00)
[2020-06-20 02:44] LABS: INR 1.82; PROTHROMBIN TIME 21.5 SECONDS (12.5-14.3)
[2020-06-20] MEDS: MEROPENEM INJ 1 GM in IV 1 EA IV SCH ×3 (03:08→18:14)
[2020-06-20] MEDS: HumaLOG INSULIN (NovoLOG) PER UNIT SC SCH ×4 (07:41→20:12)
[2020-06-20] MEDS: ATORVASTATIN 20 MG TAB PO SCH (07:41)
[2020-06-20] MEDS: OMEPRAZOLE 20 MG CAP PO SCH (07:41)
[2020-06-20] MEDS: TAMSULOSIN 0.4 MG CAP PO SCH (07:41)
[2020-06-20] MEDS: FUROSEMIDE 20 MG TAB PO SCH (07:42)
[2020-06-20] MEDS: ASPIRIN 81 MG ENTERIC TAB PO SCH (07:42)
[2020-06-20] MEDS: SPIRONOLACTONE 25 MG TAB PO SCH (07:42)
[2020-06-20] MEDS: MAGNESIUM OXIDE 400 MG TAB (MAG-OX) PO SCH ×2 (07:42→20:13)
[2020-06-20 08:46] LABS: HEMATOCRIT 28.3 % (42.0-52.0); HEMOGLOBIN 9.4 g/dl (13.5-17.5); MEAN CORPUSCULAR HEMOGLOBIN 32.9 pg (27.0-33.0); MEAN CORPUSCULAR HGB CONC 33.2 g/dl (32.0-36.5); RED BLOOD COUNT 2.86 10^6/uL (4.30-6.10); WHITE BLOOD COUNT 7.6 10^3/uL (4.0-10.0)
[2020-06-20 09:02] LABS: PLATELET COUNT, AUTOMATED 47 10^3/uL (150-450)
[2020-06-20 09:09] LABS: BILIRUBIN,TOTAL 1.2 MG/DL (0.2-1.0); C REACTIVE PROTEIN QUANTITATIV 1.28 MG/DL (0.00-0.30); CALCIUM LEVEL 7.7 MG/DL (8.8-10.2); CREATININE FOR GFR 1.26 MG/DL (0.70-1.30); GLOMERULAR FILTRATION RATE 58.9 (>42); POTASSIUM SERUM 3.6 MEQ/L (3.5-5.1); TOTAL PROTEIN 6.3 GM/DL (6.4-8.2)
[2020-06-20 09:25] LABS: ERYTHROCYTE SEDIMENTATION RATE 25 mm/hr (0-20)
[2020-06-20] MEDS ORDERED: SLF 3 ML SYR IV PRN (12:30)
--- NOTE | 2020-06-20 13:17 | IPNPDOC ---
Text Note Date of Service The patient was seen on 06/20/20. NOTE Subjective: Pt denies CP/SOB/palpitations. No N/V/Abd pain. No Cough/diarrhea. No signs of infection. Occasionally has episodes of bradycardia, asymptomatic, which he noes has happened for years. Objective: Vitals: (see below) General: No acute distress, laying comfortably in bed. HEENT: Moist mucous membranes. Neck: No JVD or lymphadenopathy Cardiac: RRR, No murmurs Pulm: Clear to auscultation b/l. No wheezing, rhonchi Abd: NT/ND + BS Ext: No edema or cyanosis Labs (see below) Images: CT Abd/pelvis IMPRESSION: 1. Cirrhosis, splenomegaly and moderate volume ascites. No localized fluid collection. 2. Colonic diverticulosis without evidence of active inflammation. 3. No CT evidence of intra-abdominal or pelvic metastatic disease. CT Chest IMPRESSION: 1. No acute or concerning focal thoracic abnormality and no evidence of thoracic metastatic disease. 2. Miniscule dependent right pleural effusion which may be pleural ascites, related to the abdominal ascites. Assessment/Plan 1. Suspected sepsis. Fevers on admission, leukocytosis/lactic acidosis. ?SBP - paracentesis pending. Bld/urine cx. On meropenem pending cx. CT chest/abd/pelvis without source. 2. Chronic thrombocytopenia. No bleeding. likely 2/2 cirrhosis. Transfuse 1 UPRBC prior to paracentesis. 3.Coagulopathy 2/2 cirrhosis - 1U FFP prior to paracentesis given elevated INR 4.HLD on statin 5. DM - SSI 6. Occasional asymptomatic bradycardia. ekg, echo. monitor on tele. DVT prophy: SCDs. VS,Fishbone, I+O VS, Fishbone, I+O Laboratory Tests 06/19/20 21:05 06/20/20 04:40 Vital Signs Date Time Temp Pulse Resp B/P (MAP) Pulse Ox O2 Delivery O2 Flow Rate FiO2 06/20/20 12:45 97.3 62 16 108/59 Room Air 06/20/20 12:27 95 I&O- Last 24 Hours up to 6 AM 06/20/20 06:00 Intake Total 2200 ml Output Total 0 ml Balance 2200 ml IJEOMA VILLA MD Jun 20, 2020 13:17
[2020-06-20] MEDS: SLF 3 ML SYR IV SCH ×2 (14:00→20:13)
[2020-06-20 17:34] LABS: HEMATOCRIT 27.4 % (42.0-52.0); HEMOGLOBIN 9.2 g/dl (13.5-17.5); MEAN CORPUSCULAR HEMOGLOBIN 33.3 pg (27.0-33.0); MEAN CORPUSCULAR HGB CONC 33.6 g/dl (32.0-36.5); MEAN CORPUSCULAR VOLUME 99.3 fl (80.0-96.0); RED BLOOD COUNT 2.76 10^6/uL (4.30-6.10); WHITE BLOOD COUNT 4.1 10^3/uL (4.0-10.0)
[2020-06-20 17:36] LABS: PLATELET COUNT, AUTOMATED 48 10^3/uL (150-450)
[2020-06-20 17:45] LABS: INR 1.62; PROTHROMBIN TIME 19.6 SECONDS (12.5-14.3)
[2020-06-20 17:46] LABS: PARTIAL THROMBOPLASTIN TIME 37.9 SECONDS (24.2-38.5)
[2020-06-20] MEDS ORDERED: PHYTONADIONE 5 MG TAB PO ONE (18:30)
[2020-06-20] MEDS ORDERED: HumaLOG INSULIN (NovoLOG) PER UNIT SC SCH (21:00)
[2020-06-21] VITALS (14 sets, daily range): BP systolic 115–143; BP diastolic 47–66
[2020-06-21 00:31] LABS: INR 1.61; PROTHROMBIN TIME 19.5 SECONDS (12.5-14.3)
[2020-06-21 00:32] LABS: PARTIAL THROMBOPLASTIN TIME 38.4 SECONDS (24.2-38.5)
[2020-06-21 00:38] LABS: HEMATOCRIT 25.2 % (42.0-52.0); HEMOGLOBIN 8.3 g/dl (13.5-17.5); MEAN CORPUSCULAR HEMOGLOBIN 33.5 pg (27.0-33.0); MEAN CORPUSCULAR HGB CONC 32.9 g/dl (32.0-36.5); MEAN CORPUSCULAR VOLUME 101.6 fl (80.0-96.0); RED BLOOD COUNT 2.48 10^6/uL (4.30-6.10); WHITE BLOOD COUNT 2.8 10^3/uL (4.0-10.0)
[2020-06-21 00:39] LABS: PLATELET COUNT, AUTOMATED 50 10^3/uL (150-450)
[2020-06-21] MEDS: MEROPENEM INJ 1 GM in IV 1 EA IV SCH ×3 (04:35→18:27)
[2020-06-21] MEDS: SLF 3 ML SYR IV SCH ×3 (04:37→20:09)
[2020-06-21 05:35] LABS: BASO % 0.4 % (0.0-1.0); EOS # 0.1 10^3/uL (0.0-0.5); EOS % 1.9 % (0.0-3.0); HEMATOCRIT 25.6 % (42.0-52.0); HEMOGLOBIN 8.5 g/dl (13.5-17.5); LYMPH # 0.5 10^3/uL (1.5-5.0); LYMPH % 18.6 % (24.0-44.0); MEAN CORPUSCULAR HEMOGLOBIN 32.7 pg (27.0-33.0); MEAN CORPUSCULAR HGB CONC 33.2 g/dl (32.0-36.5); MEAN CORPUSCULAR VOLUME 98.5 fl (80.0-96.0); MONO # 0.5 10^3/uL (0.0-0.8); MONO % 17.1 % (0.0-5.0); NEUTROPHILS # 1.6 10^3/uL (1.5-8.5); NEUTROPHILS % 61.6 % (36.0-66.0); WHITE BLOOD COUNT 2.6 10^3/uL (4.0-10.0)
[2020-06-21 05:37] LABS: PLATELET COUNT, AUTOMATED 49 10^3/uL (150-450)
[2020-06-21 05:44] LABS: INR 1.49; PROTHROMBIN TIME 18.4 SECONDS (12.5-14.3)
[2020-06-21 05:57] LABS: ALBUMIN 2.2 GM/DL (3.2-5.2); ALT/SGPT 25 U/L (12-78); BILIRUBIN,TOTAL 0.8 MG/DL (0.2-1.0); BLOOD UREA NITROGEN 21 MG/DL (7-18); CALCIUM LEVEL 7.6 MG/DL (8.8-10.2); CARBON DIOXIDE LEVEL 25 MEQ/L (21-32); CHLORIDE LEVEL 113 MEQ/L (98-107); CREATININE FOR GFR 1.06 MG/DL (0.70-1.30); GLOMERULAR FILTRATION RATE > 60.0 (>42); GLUCOSE, FASTING 145 MG/DL (70-100); MAGNESIUM LEVEL 1.5 MG/DL (1.8-2.4); POTASSIUM SERUM 3.7 MEQ/L (3.5-5.1); SODIUM LEVEL 143 MEQ/L (136-145)
[2020-06-21] MEDS ORDERED: POTASSIUM CHLORIDE 10 MEQ SR TABLET PO ONE (06:15)
[2020-06-21] MEDS: MAG SULF 1GM/100ML (MAG RUN) 1 GM in IV 1 EA IV SCH ×3 (06:32→09:12)
[2020-06-21] MEDS: ASPIRIN 81 MG ENTERIC TAB PO SCH (07:56)
[2020-06-21] MEDS: ATORVASTATIN 20 MG TAB PO SCH (08:00)
[2020-06-21] MEDS: HumaLOG INSULIN (NovoLOG) PER UNIT SC SCH ×4 (08:00→19:57)
[2020-06-21] MEDS: MAGNESIUM OXIDE 400 MG TAB (MAG-OX) PO SCH ×2 (08:00→20:08)
[2020-06-21] MEDS: FUROSEMIDE 20 MG TAB PO SCH (08:01)
[2020-06-21] MEDS: TAMSULOSIN 0.4 MG CAP PO SCH (08:01)
[2020-06-21] MEDS: OMEPRAZOLE 20 MG CAP PO SCH (08:01)
[2020-06-21] MEDS: SPIRONOLACTONE 25 MG TAB PO SCH (08:11)
[2020-06-21] MEDS ORDERED: SODIUM BICARBONATE 8.4% INJ 50MEQ 50 ML VIAL As Ordered ONE (13:30)
--- NOTE | 2020-06-21 14:16 | IPNPDOC ---
Text Note Date of Service The patient was seen on 06/21/20. NOTE Subjective: Pt denies CP/SOB/palpitations. No N/V/Abd pain. No Cough/diarrhea. No signs of infection. Occasionally has episodes of bradycardia, asymptomatic, which he noes has happened for years. Objective: Vitals: (see below) General: No acute distress, laying comfortably in bed. HEENT: Moist mucous membranes. Neck: No JVD or lymphadenopathy Cardiac: RRR, No murmurs Pulm: Clear to auscultation b/l. No wheezing, rhonchi Abd: NT/ND + BS Ext: No edema or cyanosis Labs (see below) Images: CT Abd/pelvis IMPRESSION: 1. Cirrhosis, splenomegaly and moderate volume ascites. No localized fluid collection. 2. Colonic diverticulosis without evidence of active inflammation. 3. No CT evidence of intra-abdominal or pelvic metastatic disease. CT Chest IMPRESSION: 1. No acute or concerning focal thoracic abnormality and no evidence of thoracic metastatic disease. 2. Miniscule dependent right pleural effusion which may be pleural ascites, related to the abdominal ascites. Assessment/Plan 1. Suspected sepsis. Fevers on admission, leukocytosis/lactic acidosis. ?SBP - paracentesis pending. Bld/urine cx. On meropenem pending cx. CT chest/abd/pelvis without source. 2. Chronic thrombocytopenia. No bleeding. likely 2/2 cirrhosis. Transfused 2 U platelets/2FFP prior to paracentesis. 3.Coagulopathy 2/2 cirrhosis - 1U FFP prior to paracentesis given elevated INR 4.HLD on statin 5. DM - SSI 6. Occasional asymptomatic bradycardia. ekg, echo. monitor on tele. 7. Pancytopenia 2/2 cirrhosis/sepsis. peripheral smear noted. DVT prophy: SCDs. VS,Fishbone, I+O VS, Fishbone, I+O Laboratory Tests 06/20/20 17:16 06/20/20 23:51 06/21/20 05:22 Vital Signs Date Time Temp Pulse Resp B/P (MAP) Pulse Ox O2 Delivery O2 Flow Rate FiO2 06/21/20 12:05 97.6 61 18 138/65 96 Room Air I&O- Last 24 Hours up to 6 AM 06/21/20 06:00 Intake Total 2859 ml Output Total 725 ml Balance 2134 ml IJEOMA VILLA MD Jun 21, 2020 14:16
[2020-06-21 15:27] LABS: APPEARANCE, BODY FLUID CLOUDY (CLEAR); ASCITES FL COLOR YELLOW (COLORLESS); SOURCE, BODY FLUID ASCITES
[2020-06-21 15:29] LABS: SOURCE, BODY FLUID ALBUMIN ASCITES; SOURCE, BODY FLUID GLUCOSE ASCITES; SOURCE, BODY FLUID TOT PROTEIN ASCITES; TOTAL PROTEIN, BODY FLUID 2.5 G/DL (NOT ESTABLISHED)
[2020-06-21 15:49] LABS: SPEC. GRAVITY BODY FLUIDS 1.021 (NOT ESTABLISHED)
[2020-06-22] VITALS: BP 112/53
[2020-06-22] MEDS: MEROPENEM INJ 1 GM in IV 1 EA IV SCH ×3 (03:24→18:10)
[2020-06-22 04:00] VITALS: BP 115/59
[2020-06-22] MEDS: SLF 3 ML SYR IV SCH ×3 (04:28→22:11)
[2020-06-22 05:29] LABS: BASO % 0.3 % (0.0-1.0); EOS # 0.1 10^3/uL (0.0-0.5); EOS % 2.4 % (0.0-3.0); HEMATOCRIT 26.6 % (42.0-52.0); HEMOGLOBIN 8.8 g/dl (13.5-17.5); LYMPH # 0.7 10^3/uL (1.5-5.0); LYMPH % 25.2 % (24.0-44.0); MEAN CORPUSCULAR HEMOGLOBIN 32.8 pg (27.0-33.0); MEAN CORPUSCULAR HGB CONC 33.1 g/dl (32.0-36.5); MEAN CORPUSCULAR VOLUME 99.3 fl (80.0-96.0); MONO # 0.6 10^3/uL (0.0-0.8); MONO % 19.6 % (0.0-5.0); NEUTROPHILS # 1.5 10^3/uL (1.5-8.5); NEUTROPHILS % 52.2 % (36.0-66.0); RED BLOOD COUNT 2.68 10^6/uL (4.30-6.10); WHITE BLOOD COUNT 2.9 10^3/uL (4.0-10.0)
[2020-06-22 05:32] LABS: PLATELET COUNT, AUTOMATED 56 10^3/uL (150-450)
[2020-06-22 06:00] LABS: ALBUMIN 2.1 GM/DL (3.2-5.2); ALT/SGPT 28 U/L (12-78); BILIRUBIN,TOTAL 0.6 MG/DL (0.2-1.0); BLOOD UREA NITROGEN 16 MG/DL (7-18); CALCIUM LEVEL 7.7 MG/DL (8.8-10.2); CARBON DIOXIDE LEVEL 25 MEQ/L (21-32); CHLORIDE LEVEL 113 MEQ/L (98-107); CREATININE FOR GFR 1.08 MG/DL (0.70-1.30); GLOMERULAR FILTRATION RATE > 60.0 (>42); GLUCOSE, FASTING 149 MG/DL (70-100); POTASSIUM SERUM 3.9 MEQ/L (3.5-5.1); SODIUM LEVEL 142 MEQ/L (136-145); TOTAL PROTEIN 5.8 GM/DL (6.4-8.2)
[2020-06-22 08:00] VITALS: BP 119/59
--- NOTE | 2020-06-22 08:53 | IPNPDOC ---
Text Note Date of Service The patient was seen on 06/22/20. NOTE Subjective: No acute changes overnight. Denies CP/SOB/palpitations. Objective: Vitals: (see below) General: No acute distress, laying comfortably in bed. HEENT: Moist mucous membranes. Neck: No JVD or lymphadenopathy Cardiac: RRR, No murmurs Pulm: Clear to auscultation b/l. No wheezing, rhonchi Abd: NT/ND + BS Ext: No edema or cyanosis Labs (see below) Images: CT Abd/pelvis IMPRESSION: 1. Cirrhosis, splenomegaly and moderate volume ascites. No localized fluid collection. 2. Colonic diverticulosis without evidence of active inflammation. 3. No CT evidence of intra-abdominal or pelvic metastatic disease. CT Chest IMPRESSION: 1. No acute or concerning focal thoracic abnormality and no evidence of thoracic metastatic disease. 2. Miniscule dependent right pleural effusion which may be pleural ascites, related to the abdominal ascites. Assessment/Plan 1. Suspected sepsis. Fevers on admission, leukocytosis/lactic acidosis. Suspect 2/2 SBP - paracentesis 06/21 1800cc removed; WBC >300. Bld/urine cx negative. On meropenem pending final cx. CT chest/abd/pelvis without source. 2. Chronic thrombocytopenia. No bleeding. likely 2/2 cirrhosis. Transfused 2 U platelets/2FFP prior to paracentesis. 3.Coagulopathy 2/2 cirrhosis - 1U FFP prior to paracentesis given elevated INR 4.HLD on statin 5. DM - SSI 6. Occasional asymptomatic bradycardia. ekg, echo. monitor on tele. 7. Pancytopenia 2/2 cirrhosis/sepsis. peripheral smear noted. DVT prophy: SCDs. PT consulted; pt cleared. Discussed A/P with patient and . VS,Fishbone, I+O VS, Fishbone, I+O Laboratory Tests 06/22/20 05:05 Vital Signs Date Time Temp Pulse Resp B/P (MAP) Pulse Ox O2 Delivery O2 Flow Rate FiO2 06/22/20 04:00 98.3 59 19 115/59 (77) 95 Room Air I&O- Last 24 Hours up to 6 AM 06/22/20 05:59 Intake Total 2009 ml Output Total 1175 ml Balance 835 ml IJEOMA VILLA MD Jun 22, 2020 08:52
[2020-06-22] MEDS: TAMSULOSIN 0.4 MG CAP PO SCH (09:08)
[2020-06-22] MEDS: OMEPRAZOLE 20 MG CAP PO SCH (09:08)
[2020-06-22] MEDS: HumaLOG INSULIN (NovoLOG) PER UNIT SC SCH ×4 (09:08→20:39)
[2020-06-22] MEDS: MAGNESIUM OXIDE 400 MG TAB (MAG-OX) PO SCH ×2 (09:09→20:42)
[2020-06-22] MEDS: ATORVASTATIN 20 MG TAB PO SCH (09:09)
[2020-06-22] MEDS: ASPIRIN 81 MG ENTERIC TAB PO SCH (09:09)
[2020-06-22] MEDS: FUROSEMIDE 20 MG TAB PO SCH (09:09)
[2020-06-22] MEDS: SPIRONOLACTONE 25 MG TAB PO SCH (09:09)
[2020-06-22 12:00] VITALS: BP 130/60
[2020-06-22 16:00] VITALS: BP 108/58
[2020-06-22 20:00] VITALS: BP 103/50
[2020-06-23] VITALS: BP 100/45
[2020-06-23] MEDS: MEROPENEM INJ 1 GM in IV 1 EA IV SCH ×2 (03:26→12:12)
[2020-06-23 04:00] VITALS: BP 104/57
[2020-06-23] MEDS: SLF 3 ML SYR IV SCH ×2 (05:10→12:13)
[2020-06-23 05:42] LABS: BASO % 0.3 % (0.0-1.0); EOS # 0.1 10^3/uL (0.0-0.5); EOS % 2.4 % (0.0-3.0); HEMATOCRIT 28.3 % (42.0-52.0); HEMOGLOBIN 9.5 g/dl (13.5-17.5); LYMPH # 0.8 10^3/uL (1.5-5.0); LYMPH % 21.6 % (24.0-44.0); MEAN CORPUSCULAR HEMOGLOBIN 33.2 pg (27.0-33.0); MEAN CORPUSCULAR HGB CONC 33.6 g/dl (32.0-36.5); MONO # 0.7 10^3/uL (0.0-0.8); MONO % 18.6 % (0.0-5.0); NEUTROPHILS # 2.1 10^3/uL (1.5-8.5); NEUTROPHILS % 56.6 % (36.0-66.0); RED BLOOD COUNT 2.86 10^6/uL (4.30-6.10); WHITE BLOOD COUNT 3.7 10^3/uL (4.0-10.0)
[2020-06-23 05:44] LABS: PLATELET COUNT, AUTOMATED 60 10^3/uL (150-450)
[2020-06-23 06:08] LABS: ALBUMIN 1.9 GM/DL (3.2-5.2); ALT/SGPT 29 U/L (12-78); BILIRUBIN,TOTAL 0.6 MG/DL (0.2-1.0); BLOOD UREA NITROGEN 16 MG/DL (7-18); CALCIUM LEVEL 7.8 MG/DL (8.8-10.2); CARBON DIOXIDE LEVEL 26 MEQ/L (21-32); CHLORIDE LEVEL 113 MEQ/L (98-107); CREATININE FOR GFR 1.18 MG/DL (0.70-1.30); GLOMERULAR FILTRATION RATE > 60.0 (>42); GLUCOSE, FASTING 146 MG/DL (70-100); POTASSIUM SERUM 4.3 MEQ/L (3.5-5.1); SODIUM LEVEL 143 MEQ/L (136-145); TOTAL PROTEIN 5.9 GM/DL (6.4-8.2)
[2020-06-23] MEDS: MAGNESIUM OXIDE 400 MG TAB (MAG-OX) PO SCH (07:35)
[2020-06-23] MEDS: FUROSEMIDE 20 MG TAB PO SCH (07:35)
[2020-06-23] MEDS: TAMSULOSIN 0.4 MG CAP PO SCH (07:35)
[2020-06-23] MEDS: ATORVASTATIN 20 MG TAB PO SCH (07:35)
[2020-06-23] MEDS: OMEPRAZOLE 20 MG CAP PO SCH (07:36)
[2020-06-23] MEDS: HumaLOG INSULIN (NovoLOG) PER UNIT SC SCH ×2 (07:36→12:13)
[2020-06-23] MEDS: ASPIRIN 81 MG ENTERIC TAB PO SCH (07:36)
[2020-06-23] MEDS: SPIRONOLACTONE 25 MG TAB PO SCH (07:36)
[2020-06-23 08:00] VITALS: BP 114/57
[2020-06-23 12:00] VITALS: BP 119/50
--- NOTE | 2020-06-23 13:10 | IPNPDOC ---
Text Note Date of Service The patient was seen on 06/23/20. NOTE Subjective: No acute changes overnight. Denies any complaints. Objective: Vitals: (see below) General: No acute distress, laying comfortably in bed. HEENT: Moist mucous membranes. Neck: No JVD or lymphadenopathy Cardiac: RRR, No murmurs Pulm: Clear to auscultation b/l. No wheezing, rhonchi Abd: NT/ND + BS Ext: No edema or cyanosis Labs (see below) Images: CT Abd/pelvis IMPRESSION: 1. Cirrhosis, splenomegaly and moderate volume ascites. No localized fluid collection. 2. Colonic diverticulosis without evidence of active inflammation. 3. No CT evidence of intra-abdominal or pelvic metastatic disease. CT Chest IMPRESSION: 1. No acute or concerning focal thoracic abnormality and no evidence of thoracic metastatic disease. 2. Miniscule dependent right pleural effusion which may be pleural ascites, related to the abdominal ascites. Assessment/Plan 1. Suspected sepsis. Fevers on admission, leukocytosis/lactic acidosis. Suspect 2/2 SBP - paracentesis 06/21 1800cc removed; WBC >300. Bld/urine cx negative. On meropenem pending final cx. CT chest/abd/pelvis without source. ID consulted for Abx de-escalation. 2. Chronic thrombocytopenia. No bleeding. likely 2/2 cirrhosis. Transfused 2 U platelets/2FFP prior to paracentesis. 3.Coagulopathy 2/2 cirrhosis - 1U FFP prior to paracentesis given elevated INR 4.HLD on statin 5. DM - SSI 6. Occasional asymptomatic bradycardia. ekg, echo. monitor on tele. 7. Pancytopenia 2/2 cirrhosis/sepsis. peripheral smear noted. DVT prophy: SCDs. PT consulted; pt cleared. D/c pending ID input with Abx de-escalation. VS,Fishbone, I+O VS, Fishbone, I+O Laboratory Tests 06/23/20 05:19 Vital Signs Date Time Temp Pulse Resp B/P (MAP) Pulse Ox O2 Delivery O2 Flow Rate FiO2 06/23/20 08:00 98.4 65 18 114/57 (76) 94 Room Air I&O- Last 24 Hours up to 6 AM 06/23/20 06:00 Intake Total 990 ml Output Total 1275 ml Balance -285 ml IJEOMA VILLA MD Jun 23, 2020 13:10
[2020-06-23] MEDS ORDERED: LEVA750T7 PO (15:19)
--- NOTE | 2020-06-23 16:29 | DS.PDOC ---
Discharge Summary General Date of Admission Jun 20, 2020 at 03:11 Date of Discharge 06/23/20 Attending Physician: IJEOMA VILLA MD Discharge Summary PROCEDURES PERFORMED DURING STAY: Paracentesis ADMITTING/DISCHARGE DIAGNOSES: 1. Suspected sepsis. Fevers on admission, leukocytosis/lactic acidosis. Suspect 2/2 SBP - paracentesis 06/21 1800cc removed; WBC >300. Bld/urine cx negative. On meropenem pending final cx. CT chest/abd/pelvis without source. ID consulted for Abx de-escalation. [facility] levaquin x 3 days. 2. Chronic thrombocytopenia. No bleeding. likely 2/2 cirrhosis. Transfused 2 U platelets/2FFP prior to paracentesis. 3.Coagulopathy 2/2 cirrhosis - 1U FFP prior to paracentesis given elevated INR 4.HLD on statin 5. DM - SSI 6. Occasional asymptomatic bradycardia. ekg, echo. monitor on tele. 7. Pancytopenia 2/2 cirrhosis/sepsis. peripheral smear noted. Patient is 79 years old male with past medical history of alcoholic liver cirrhosis, chronic obstructive pulmonary disease (COPD), coronary artery disease (CAD), coronary artery bypass graft (CABG)diabetes, hyperten connie,hypercholesterolemia, glaucoma, hypertensive and diabetic retinopathy and prostate cancer presented to the hospital with low-grade fever and shakiness. Patient stated that for past few days he has been having rigors and low-grade fever. He denied diarrhea, abdominal pain, nausea, vomiting. In ER patient was found to have leukocytes 3.6, lactic acid 4.9, BNP 646. CT chest showed Miniscule dependent right pleural effusion which may be pleural ascites, related to the abdominal ascites. CT of abdomen and pelvis showed Cirrhosis, splenomegaly and moderate volume ascites Over course of hospitalization, pt remained hemodynamically stable. He has received platelets and FFP for his thrombocytopenia and elevated INR. He experienced no bleeding. Patient had suspects SBP, had a paracentesis with 1800cc removed, although the ascites cx was negative. He is feeling well and bld cx negative, afebrile. ID has been consulted with [facility] to de-escalade Abx to levaquin x 3days. Pt has also been seen by PT and cleared for d/c. COMPLICATIONS/CHIEF COMPLAINT: generalized weakness. HISTORY OF PRESENT ILLNESS/HOSPITAL COURSE: DISCHARGE MEDICATIONS: Please see below. ALLERGIES: Please see below. PHYSICAL EXAMINATION ON DISCHARGE: Vitals: (see below) General: No acute distress, laying comfortably in bed. HEENT: Moist mucous membranes. Neck: No JVD or lymphadenopathy Cardiac: RRR, No murmurs Pulm: Diminished at the bases b/l. No wheezing, rhonchi Abd: NT/ND + BS Ext: No edema or cyanosis LABORATORY DATA: Please see below. IMAGES: CT Abd/pelvis IMPRESSION: 1. Cirrhosis, splenomegaly and moderate volume ascites. No localized fluid collection. 2. Colonic diverticulosis without evidence of active inflammation. 3. No CT evidence of intra-abdominal or pelvic metastatic disease. CT Chest IMPRESSION: 1. No acute or concerning focal thoracic abnormality and no evidence of thoracic metastatic disease. 2. Miniscule dependent right pleural effusion which may be pleural ascites, related to the abdominal ascites. PROGNOSIS: fair ACTIVITY: As tolerated. DIET: High protein DISCHARGE PLAN/DISPOSITION: Home with family DISCHARGE INSTRUCTIONS: 1.F/u with PCP and GI in 1-2 weeks.Return to ED if symptoms worsen. DISCHARGE CONDITION: Stable. TIME SPENT ON DISCHARGE: 32 minutes. Vital Signs/I&Os Vital Signs Date Time Temp Pulse Resp B/P (MAP) Pulse Ox O2 Delivery O2 Flow Rate FiO2 06/23/20 12:00 97.8 72 18 119/50 (73) 95 06/23/20 08:00 Room Air I&O- Last 24 Hours up to 6 AM 06/23/20 06:00 Intake Total 990 ml Output Total 1275 ml Balance -285 ml Laboratory Data Labs 24H Laboratory Tests 2 06/22/20 16:37: Bedside Glucose (Misc Panel) 145H 06/22/20 20:34: Bedside Glucose (Misc Panel) 191H 06/23/20 05:19: Immature Granulocyte % (Auto) 0.5, Neutrophils (%) (Auto) 56.6, Lymphocytes (%) (Auto) 21.6L, Monocytes (%) (Auto) 18.6H, Eosinophils (%) (Auto) 2.4, Basophils (%) (Auto) 0.3, Neutrophils # (Auto) 2.1, Lymphocytes # (Auto) 0.8L, Monocytes # (Auto) 0.7, Eosinophils # (Auto) 0.1, Basophils # (Auto) 0.0, Nucleated Red Blood Cells % (auto) 0.0, Immature Platelet Fraction 4.0, Anion Gap 4L, Glomerular Filtration Rate > 60.0, Calcium Level 7.8L, Total Bilirubin 0.6, Aspartate Amino Transf (AST/SGOT) 52H, Alanine Aminotransferase (ALT/SGPT) 29, Alkaline Phosphatase 111, Total Protein 5.9L, Albumin 1.9L, Albumin/Globulin Ratio 0.5 06/23/20 11:59: Bedside Glucose (Misc Panel) 180H CBC/BMP Laboratory Tests 06/23/20 05:19 FSBS Laboratory Tests Test 06/22/20 16:37 06/22/20 20:34 06/23/20 11:59 Range/Units Bedside Glucose (Misc Panel) 145 191 180 83-110 MG/DL Microbiology Microbiology 06/21/20 Acid Fast Stain, Received Pending 06/21/20 Mycobacterial Culture, Received Pending 06/21/20 Fungal Smear, Received Pending 06/21/20 Fungal Culture, Received Pending 06/21/20 Gram Stain - Final, Complete 06/21/20 Body Fluid Culture - Final, Complete 06/19/20 Respiratory Virus Panel (PCR) (CAM) - Final, Complete 06/19/20 Blood Culture - Preliminary, Resulted No Growth after 72 hours. All specime... 06/19/20 Blood Culture - Preliminary, Resulted No Growth after 72 hours. All specime... Discharge Medications Scheduled Aspirin (Aspirin EC) 81 Mg Tablet.dr, 81 MG PO DAILY, (Reported) Atorvastatin Calcium (Atorvastatin Calcium) 40 Mg Tablet, 40 MG PO DAILY, (Reported) Cholecalciferol (Vitamin D3) (Vitamin D3) 50 Mcg Tablet, 50 MCG PO DAILY, (Reported) Furosemide (Furosemide) 20 Mg Tablet, 20 MG PO DAILY, (Reported) Glimepiride (Glimepiride) 1 Mg Tablet, 1 MG PO DAILY, (Reported) Levofloxacin (Levaquin) 750 Mg Tablet, 1 TAB PO DAILY Magnesium Oxide (Magnesium Oxide) 400 Mg Tablet, 400 MG PO BID, (Reported) Omeprazole (Omeprazole) 20 Mg Capsule.dr, 20 MG PO DAILY, (Reported) Spironolactone (Spironolactone) 25 Mg Tablet, 25 MG PO DAILY, (Reported) Tamsulosin Hcl (Tamsulosin HCl) 0.4 Mg Capsule, 0.4 MG PO DAILY, (Reported) Scheduled PRN Nitroglycerin (Nitroglycerin) 0.4 Mg Tab.subl, 0.4 MG SL NITRO PRN for CHEST PAIN, (Reported) Allergies Coded Allergies: Penicillins (Verified Allergy, Severe, RASH AND THROAT SWELLING, 02/15/20) niacin (Verified Allergy, Unknown, 06/20/20) ramipril (Verified Allergy, Unknown, 06/20/20) varenicline (Verified Adverse Reaction, Intermediate, HALLUCINATIONS, WEIRD DREAMS, 06/20/20) IJEOMA VILLA MD Jun 23, 2020 16:29
--- NOTE | 2020-06-24 00:14 | ECGEPIP ---
[facility] Test Date: 2020-06-20 Pat Name: KINDRA GAMBOA Department: Room: [place] [address] Gender: Male [employer]: RAMEZ : 1940 Requested By: IJEOMA VILLA Order Number: [id number] Reading MD: Todd Banda Measurements Intervals Independence Rate: 67 P: -23 HI: 155 QRS: 18 QRSD: 106 T: 58 QT: 418 QTc: 444 Interpretive Statements SINUS RHYTHM WITH OCCASIONAL VENTRICULAR PREMATURE COMPLEXES POSSIBLE RIGHT VENTRICULAR CONDUCTION DELAY INFERIOR MYOCARDIAL INFARCTION, PROBABLY OLD WITH POSTERIOR EXTENSION No prior tracing in the system Electronically Signed on 06-24-2020 0:14:38 EDT by Todd Banda
--- NOTE | 2020-06-25 13:11 | CR ---
DATE OF CONSULTATION: 06/20/2020 REFERRING PHYSICIAN: Hung Pyle MD REASON FOR CONSULTATION: Bradycardia, unspecified. HISTORY OF PRESENT ILLNESS: Kelechi Weeks is a 79-year-old man with coronary artery disease status post coronary artery bypass graft surgery (CABG) times four (1989), premature ventricular contractions (PVCs), systemic hypertension, hypercholesterolemia, alcoholic liver cirrhosis, chronic obstructive pulmonary disease (COPD), type 2 diabetes, glaucoma, diabetic retinopathy, and prostate cancer who presented to hospital with a low grade fever and shakiness. He was found to have an elevated lactic acid level and a mildly elevated BNP level. He was found to have ascites and liver cirrhosis and splenomegaly. Attempt to have the patient undergo abdominocentesis during this hospitalization had resulted in cancellation due to the patient being found to be bradycardic. On telemetry, the patient has sinus rhythm with frequent PVCs and at times ventricular bigeminy resulting in the appearance of bradycardia, but not true bradycardia due to ventricular bigeminy. Patient reports about twice a week, and for many years, stable recurrence of fairly well localized mid left anterior chest slight tightness (1-1.5 over 10 severity) that occurs spontaneously at rest and not related to physical activity. Episodes last for a few minutes. No exertional dyspnea. No orthopnea or paroxysmal nocturnal dyspnea (PND). No leg or ankle swelling. Palpitations: He reports he has had palpitations described as skipping for many years. No other concurrent associated symptoms. No presyncope or syncope. No embolic events. No intermittent claudication. PAST MEDICAL AND SURGICAL HISTORY: CAD, CABG times four (1989), alcoholic liver cirrhosis, COPD, type 2 diabetes, systemic hypertension, hypercholesterolemia, PVCs, glaucoma, diabetic retinopathy, hypertension retinopathy, prostate cancer, diverticular disease, presbycusis with bilateral hearing aids, open angle glaucoma. Status post pertussis, measles, mumps vaccination. Prostate cancer with seed implantation radiation 2001. 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 Left ankle open reduction and internal fixation. Vasectomy in 1971. Cholecystectomy in 1968. FAMILY HISTORY: Mother from a stroke at age 43 following nephrectomy. Father at age 63 from CAD and myocardial infarction. SOCIAL HISTORY: Current smoker. Currently abstaining from alcohol. No illicit drugs. All other ten-point review of systems negative other than those listed in the history of present illness (HPI) above. CURRENT MEDICATIONS IN HOSPITAL: Are as follows: - Humalog insulin per protocol before meals and nightly - aspirin 81 mg daily - atorvastatin 40 mg daily - furosemide 20 mg daily - magnesium oxide 400 mg twice a day - Prilosec 20 mg daily - spironolactone 25 mg daily - tamsulosin 0.4 mg daily - meropenem 1 gram IV every 8 hours - nitroglycerin 0.4 mg sublingual every 5 minutes as needed - acetaminophen 650 mg every 4 hours as needed ADVERSE DRUG REACTIONS: PENICILLINS, NIACIN, RAMAPRIL, VARENICLINE. Echocardiogram Doppler 02/16/2020 reported mild focal hypertrophy of the basal anterior septum, no dynamic left ventricular outflow tract (LVOT) obstruction. Normal regional left ventricular (LV) wall motion and wall thickening. Normal LV systolic function. Left ventricular ejection fraction (LVEF) 60%. Grade 1 LV diastolic dysfunction. Mild left atrial dilatation. Small pericardial effusion. Very mild aortic valve sclerosis. No aortic regurgitation. Bilateral pleural effusions. Adenosine stress SPECT myocardial perfusion imaging 02/2008 reported a fixed mild sized inferior/intraseptal defect extending into the basal and collateral region consistent with prior infarction in the distribution of the right coronary artery. Hypokinesis of the basal inferior and severe hypokinesis of the basal intraseptal segments of the left ventricle with preserved LV systolic function. PHYSICAL EXAMINATION: Temperature 97.6, pulse 56, respiratory rate 17, blood pressure of 119/58, oxygen saturation 96% on room air. Height 69 inches, weight 61.8 kg, body mass index (BMI) 20.1. Appears to be normal body weight. Appears his chronological age. . No gross head, face, or skeletal deformities. No conjunctivae pallor, scleral icterus, or xanthelasmas. Multiple missing teeth. Oral mucosa is moist and without pallor or cyanosis. Jugular venous pulsations were at 3 cm. Trachea midline. No palpable thyroid. No clubbing of the nail beds, cyanosis, or splinter hemorrhages. No skin lesions, skin pallor, or icterus. Oriented to person, place, and time. Mood and affect normal. Curvature of spine normal. Gait was normal. Gross motor strength and tone was normal. No abnormal muscle fasciculations or tremors. Respiratory expansion and effort was good. No crackles or wheezes. No dullness to percussion. No palpable apex beat. No parasternal lifts, heaves, thrills, or palpable heart sounds. First and second heart sounds were normal. Paradoxical S2 with PVCs that were occurring occasionally. No S3 or S4. No murmurs appreciated. Carotids are normal in volume and contour and without bruits. No palpable abdominal aorta. No abdominal bruits. Pedal pulses normal. No peripheral edema. Abdomen was protuberant, soft, nontender with normal bowel sounds. No hepatosplenomegaly or other organomegaly. Liver span difficult to assess due to ascites. Stool for occult blood not presently indicated. INVESTIGATIONS: Electrocardiogram 06/20/2020 at 10 a.m. showed sinus rhythm with PVC times one, RSR prime V1 and V2 are consistent with right ventricular (RV) conduction delay, old inferior wall myocardial infarct. Portable chest x-ray 06/19/2020 reported no acute or focal cardiopulmonary process. No pleural effusion. Cardiac silhouette appeared normal. No adenopathy or hilar mass. Chest CT 06/19/2020 reported no active pulmonary edema. Miniscule posterior right pleural effusion. Median sternotomy and coronary bypass changes present. No cardiac enlargement. No abnormal volume of pericardial fluid. No thoracic aortic aneurysm or dissection. Laboratory work 06/20/2020 was reviewed: WBC 4.1, hemoglobin 9.2, hematocrit 27.4, platelets 48, PT/INR of 1.61, lactic acid 2.82, sodium 143, potassium 3.6, chloride 114, CO2 21, BUN 20, creatinine 1.26, estimated GFR 58.9, glucose 173, calcium 7.7, total bilirubin elevated at 1.2, AST elevated at 40, ALT 27, alkaline phosphatase 105, total protein 6.3, albumin 2.0. Laboratory work 06/19/2020 showed: TSH 0.945, T4 7.7. ASSESSMENT AND RECOMMENDATIONS: 1. Bradycardia, unspecified. The patients slow pulse was actually artifactual due to ventricular bigeminy. Patient does not qualify for treating this artifactual slow pulse with atropine and does not qualify for implantation of a permanent pacemaker or a temporary pacemaker. Patient is not symptomatic with ventricular bigeminy other than being able to feel skips from time to time. 2. Coronary artery disease (CAD). History of old inferior wall myocardial infarct. Patient has stable atypical chest pain unrelated to physical exertion which has been stable for many years. Continue medical therapy (aspirin 81 mg, atorvastatin 40 mg). 3. Status post coronary artery bypass surgery (CABG) times four (1989). As per coronary artery disease (CAD) category above. 4. Systemic hypertension. Blood pressure well controlled in hospital. Patient is currently being treated with furosemide 20 mg daily and spironolactone 25 mg daily. No change has been made to this regimen. 5. Hypercholesterolemia. Patient is on atorvastatin 40 mg daily. Continue the same. 6. Ventricular depolarizations. Patient reports skipped beats for many years. He has frequent premature ventricular contractions (PVCs) and at times has ventricular bigeminy. Other than feeling some brief palpitations, he is otherwise asymptomatic with this. He has had prior extensive alcohol intake which likely contributes to this. Perhaps the patients prior myocardial infarct may contribute to this as well. Thus far on telemetry, no sustained ventricular tachycardia has been observed. 7. Preoperative cardiac clearance. Patient has cardiac clearance to undergo abdominocentesis in the radiology department. He should be on an ECG monitor for continuous ECG monitoring during the procedure. He does not require atropine IV for ventricular bigeminy. He does not require lidocaine or antiarrhythmic drugs should he develop ventricular bigeminy. [facility]
--- NOTE | 2020-06-25 13:15 | CR ---
DATE OF CONSULTATION: 06/23/2020 ATTENDING PHYSICIAN: Gopal Brown MD REASON FOR CONSULTATION: Antibiotic deescalation. HISTORY OF PRESENT ILLNESS: Patient is a 79-year-old male with a past medical history of liver cirrhosis who presented with a less than 12 hour history of rigors and shaking, admitted on 06/20/2020 with rigors beginning at about 1700 hours the day before and progressively worsening as the night went on, prior to that he and his , who is present as well, state that he was in his usual state of health and was having zero problems. On admission, the patient denied any history of fevers, cough, difficulty breathing, chest pain, abdominal pain, nausea, vomiting, constipation, diarrhea, new rashes, or any localizing signs or symptoms. In the emergency department on presentation, his white blood cell count was 3.6, lactic acid of 4.9, and a fever of 100.9. Patient was initially started on broad-spectrum empiric antibiotics for presumed spontaneous bacterial peritonitis. His methicillin-resistant Staphylococcus aureus (MRSA) screen was negative and he was started on meropenem. He underwent a full workup including blood cultures which were normal, respiratory panel normal, a urinalysis that was normal, CT of his chest, abdomen and pelvis which only showed hepatosplenomegaly and liver cirrhosis, and eventually underwent ascitic tapping and total draining of 5.6 liters which showed white blood cells but predominant monocytes. We had been consulted for deescalation of antibiotics after 5 days on IV meropenem therapy. Patient currently reports that he has been feeling well and feels ready to go home. PAST MEDICAL HISTORY: Coronary artery disease status post coronary artery bypass graft surgery (CABG), chronic obstructive pulmonary disease (COPD), history of prostate cancer, type 2 diabetes, hypertension, hypercholesterolemia, history of diverticulosis, presbycusis with bilateral hearing aids, history of open angle glaucoma, hypertensive diabetic retinopathy, history of pertussis, measles, and mumps as a child, alcoholic liver cirrhosis. PAST SURGICAL HISTORY: Prostate cancer with seed implantation status post radiation in 2001, CABG times four vessel 1989, left ankle open reduction internal fixation, vasectomy in 1971, cholecystectomy in 1968. FAMILY HISTORY: Mother at age 43 from a CVA after nephrectomy, father age 63 from coronary artery disease and myocardial infarction ([place]). SOCIAL HISTORY: Former smoker, quit 2 weeks ago. He has smoked a pack a day since age 16, so 63 pack-year history. Previously drank five alcoholic beverages a day for 30 years, quit 12/25/2019. 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 His is a registered registered nurse, prior [employer] [facility] Health worker, she is the healthcare proxy. REVIEW OF SYSTEMS: Constitutional: Patient denies night sweats, recent unexpected weight change. HEENT: Denies headache, dizziness, vision changes, eye redness, ear pain, ear drainage, increased difficulty hearing, nasal congestion, rhinorrhea, nosebleeds, mouth pain, difficulty swallowing, sore throat. Neck: Denies neck pain or swelling. Cardiovascular: Denies chest pain, palpitations. Admits to dyspnea with exertion. Respiratory: Admits to chronic wheezing. Denies current shortness of breath at rest. Denies cough, hemoptysis. Gastrointestinal (GI): Denies abdominal pain, nausea, vomiting, constipation, diarrhea, melena, hematochezia. Genitourinary (): Denies dysuria, hematuria, urinary urgency or frequency. Musculoskeletal: Denies joint aches/pains, muscle aches/pains. Skin: Denies rashes or skin lesions. Neurologic: Denies numbness/tingling in extremities or weakness in extremities. Psychiatric: Denies suicidal ideation (SI), homicidal ideation (HI), auditory/visual hallucinations (AVH). OBJECTIVE: Vital signs: Temperature 97.8, pulse 72 and regular, respiratory rate of 18 without use of accessory muscles of respiration, blood pressure 119/50, saturating 95% on room air, maximum temperature (T-max) of 100.9 on 06/19/2020. Intake and output in the last 24 hours: 940 in, 1000 out. PHYSICAL EXAMINATION: General: Patient is a well-appearing male who appears stated age, in no acute distress, laying comfortably in bed. HEENT: Head is normocephalic, atraumatic. Extraocular movements intact. No scleral icterus. Mucous membranes moist. Oropharynx without erythema. Neck: No cervical or supraclavicular lymphadenopathy. Cardiovascular: Regular rate and rhythm, normal S1 and S2. No murmurs, gallops, rubs. Respiratory: Clear to auscultation bilaterally. Delayed expiratory phase. No wheezes, crackles, or rhonchi. Abdomen: Mild to moderately distended with patch over left side of the abdomen, nontender, unable to palpable lower margins due to abdominal distention, no rigidity. Extremities: No swelling or edema. Palmar erythema bilaterally. Neurologic: Cranial nerves II-XII grossly intact. Strength +5/5 in bilateral upper and lower extremities. Sensation intact in bilateral upper and lower extremities. Alert and oriented times three. No asterixis noted. Psychiatric: Normal mood and affect. LABORATORY DATA: White blood cell count of 3.7, hemoglobin of 9.5, hematocrit of 20.3, platelet count of 60, sodium 143, potassium 4.3, chloride 113, bicarbonate 26, BUN of 16, creatinine 1.18, glucose 146, calcium 7.8, total bilirubin 0.6, AST of 52, ALT of 29, alkaline phosphatase of 111, total protein 5.9, albumin 1.9. Tumor marker AFP 2.8. Microbiology: Gram stain and body fluid culture negative. Respiratory panel negative. Blood culture times two on 06/19/2020 negative. Acid fast, mycobacterial fungal smear are pending. Ascitic fluid was from 06/21/2020, is showing yellow cloudy ascites with specific gravity of 1.021, white blood cell count of 648, red blood cell of 5, mononuclear percentage 91.5, PMNs 8.5, fluid glucose 179, total protein 2.5, fluid albumin 1.0. IMAGIN06/19/2020 CT abdomen and pelvis with contrast showin. Cirrhosis, splenomegaly, and moderate volume ascites. No localized fluid collection. 2. Colonic diverticulosis without evidence of active inflammation. 3. No CT evidence of intraabdominal or pelvic metastatic disease. 06/19/[address] with contrast showin. No acute or concerning focal thoracic abnormality and no evidence of thoracic metastatic disease. 2. Miniscule dependent right pleural effusion which may be pleural ascites related to the abdominal ascites. ASSESSMENT/PLAN: Patient is a 79-year-old male presenting with a 1 day history of rigors, leukopenia, and lactic acidosis status post IV meropenem times 5 days concerning for transient bacteremia. 1. Transient bacteremia. Given the source of infection, this is likely a transient bacteremia that was caught early. We will cover for gram-positive and gram-negatives with another 3 days of oral Levaquin. No need for methicillin- resistant Staphylococcus aureus (MRSA) coverage as his MRSA screen was negative. 2. Alcoholic liver cirrhosis. Patient is apparently scheduled to undergo a transjugular intrahepatic portosystemic shunt (TIPS) procedure in July through Dr. Billingsley in [place]. Advised him to please followup with his mediation commissioner regarding this to ensure that this happens and also establish gastrointestinal (GI) care here for an upper endoscopy and possible banding prior to the TIPS procedure. Thank you for your consultation. Please do not hesitate to contact us with any questions or concerns. [facility]
--- NOTE | 2020-06-28 09:29 | REP ---
ULTRASOUND-GUIDED PARACENTESIS The procedure was performed by ILIA Moore, under the direct supervision of Dr. Gipson. The risks and benefits of the procedure were explained to the patient and an informed consent was obtained both verbally and written. Directly prior to the start of the procedure, a formal time-out was completed in the procedure room. The largest pocket of fluid was localized in the left flank under ultrasound guidance. The skin was prepped, and draped in a sterile fashion. Approximately 10 mL of buffered Lidocaine was used as a local anesthetic. A small skin jem was made and through that skin jem, an 8-Bengali multi-side hole catheter was inserted using trocar technique. 1500 mL of dark yellow fluid was removed in total, 200 mL was sent to the lab for further analysis, and the rest was discarded. The patient tolerated the procedure extremely well, and there were no immediate complications. After the appropriate amount of monitored convalescence, the patient was discharged from the department. This exam has been dictated by ILIA Moore with Dr. Gipson. [facility] C[facility]ERSailaja
== END 2020-06-23 18:20 | disposition home or self-care (01) | DRG 871 ==
LOC: M ED 19:54 → M ED INP 06-20 03:11 → ENRESERV 06-20 04:13 → M MS5PR 06-20 04:50 → M PCU 06-20 11:25
PROVIDERS: ADMIT Internal Medicine; ATTEND Internal Medicine
PROC: 0W9G3ZZ Drainage of Peritoneal Cavity, Percutaneous Approach (ICD-10-PCS; principal; 2020-06-21 12:44)
DX: A41.9 Sepsis, unspecified organism (principal); K65.2 Spontaneous bacterial peritonitis; E87.2 Acidosis; D68.4 Acquired coagulation factor deficiency; D61.818 Other pancytopenia; I25.10 Atherosclerotic heart disease of native coronary artery without angina pectoris; J44.9 Chronic obstructive pulmonary disease, unspecified; E11.319 Type 2 diabetes mellitus with unspecified diabetic retinopathy without macular edema; I10 Essential (primary) hypertension; E78.00 Pure hypercholesterolemia, unspecified; Z95.1 Presence of aortocoronary bypass graft; H91.13 Presbycusis, bilateral; I49.3 Ventricular premature depolarization; D69.59 Other secondary thrombocytopenia; H40.1190 Primary open-angle glaucoma, unspecified eye, stage unspecified; R00.8 Other abnormalities of heart beat; F17.200 Nicotine dependence, unspecified, uncomplicated; K70.11 Alcoholic hepatitis with ascites; Z79.82 Long term (current) use of aspirin; Z79.84 Long term (current) use of oral hypoglycemic drugs; Z79.899 Other long term (current) drug therapy; Z88.0 Allergy status to penicillin; Z88.8 Allergy status to other drugs, medicaments and biological substances; K70.31 Alcoholic cirrhosis of liver with ascites; Z90.49 Acquired absence of other specified parts of digestive tract; Z97.4 Presence of external hearing-aid; Z87.81 Personal history of (healed) traumatic fracture; Z85.46 Personal history of malignant neoplasm of prostate; Z20.828 Contact with and (suspected) exposure to other viral communicable diseases

== ENCOUNTER → 2020-07-21 | Outpatient (REF) | payer MEDICARE ==
[~2020-07-21] MED LIST changes: +ASPI-161 PO; +FURO20TA2 PO; +LEVA750T7 PO; +MAGN400T2 PO; +OMEP-218 PO
[2020-07-21 17:35] LABS: INR 1.39; PROTHROMBIN TIME 17.4 SECONDS (12.5-14.3)
== END ==
LOC: M LAB REF 16:34
PROVIDERS: ATTEND Internal Medicine
DX: K70.31 Alcoholic cirrhosis of liver with ascites (principal)

== ENCOUNTER → 2020-08-03 | Outpatient (CLI) | payer MEDICARE ==
[2020-08-03 09:20] LABS: HEMATOCRIT 32.1 % (42.0-52.0); HEMOGLOBIN 10.4 g/dl (13.5-17.5); MEAN CORPUSCULAR HEMOGLOBIN 32.3 pg (27.0-33.0); MEAN CORPUSCULAR HGB CONC 32.4 g/dl (32.0-36.5); MEAN CORPUSCULAR VOLUME 99.7 fl (80.0-96.0); RED BLOOD COUNT 3.22 10^6/uL (4.30-6.10); WHITE BLOOD COUNT 4.1 10^3/uL (4.0-10.0)
[2020-08-03 09:22] LABS: PLATELET COUNT, AUTOMATED 51 10^3/uL (150-450)
[2020-08-03 09:29] LABS: INR 1.44; PROTHROMBIN TIME 17.9 SECONDS (12.5-14.3)
[2020-08-03 10:19] LABS: ALBUMIN 2.8 GM/DL (3.2-5.2); ALT/SGPT 34 U/L (12-78); BILIRUBIN,DIRECT 0.4 MG/DL (0.0-0.2); BILIRUBIN,TOTAL 1.1 MG/DL (0.2-1.0); BLOOD UREA NITROGEN 16 MG/DL (7-18); CALCIUM LEVEL 8.4 MG/DL (8.8-10.2); CARBON DIOXIDE LEVEL 28 MEQ/L (21-32); CHLORIDE LEVEL 108 MEQ/L (98-107); CREATININE FOR GFR 1.21 MG/DL (0.70-1.30); FERRITIN 64 NG/ML (26-388); GLOMERULAR FILTRATION RATE > 60.0 (>42); GLUCOSE, FASTING 189 MG/DL (70-100); IMMUNOGLOBULIN G 3040 MG/DL (681-1648); IRON (FE) 102 UG/DL (65-175); PERCENT SATURATION 30.3 % (19.7-50.0); POTASSIUM SERUM 3.6 MEQ/L (3.5-5.1); SODIUM LEVEL 141 MEQ/L (136-145); TOTAL IRON BINDING CAPACITY 337 UG/DL (250-450); TOTAL PROTEIN 7.4 GM/DL (6.4-8.2)
[2020-08-03 14:54] LABS: ALBUMIN 3.03 GM/DL (3.29-5.55); ALBUMIN % 40.9 % (55.8-66.1); ALPHA-1-GLOBULIN % 3.6 % (2.9-4.9); ALPHA-1-GLOBULINS 0.27 GM/DL (0.17-0.41); ALPHA-2-GLOBULINS 0.53 GM/DL (0.42-0.99); ALPHA-2-GLOBULINS % 7.1 % (7.1-11.8); BETA-1-GLOBULINS 0.41 GM/DL (0.28-0.60); BETA-1-GLOBULINS % 5.6 % (4.7-7.2); BETA-2-GLOBULINS 0.26 GM/DL (0.19-0.55); BETA-2-GLOBULINS % 3.5 % (3.2-6.5); GAMMA GLOBULIN % 39.3 % (11.1-18.8); GAMMA GLOBULINS 2.91 GM/DL (0.65-1.58)
[2020-08-04 20:12] LABS: ALPHA 1 ANTITRYPSIN 158 mg/dL (101-187); ANTI DOUBLE STRAND-DNA AB 5 IU/mL (0-9); ANTI-MITOCHONDRIAL ANTIBODY <20.0 Units (0.0-20.0); ANTINUCLEAR ANTIBODIES DIRECT Positive (Negative); CERULOPLASMIN 20.3 mg/dL (16.0-31.0); LIVER-KIDNEY MICROSOMAL ABY <20.1 Units (0.0-20.0); RNP ANTIBODIES >8.0 AI (0.0-0.9); SJOGREN'S ANTI SS-A 0.6 AI (0.0-0.9); SJOGREN'S ANTI SS-B <0.2 AI (0.0-0.9); SMITH ANTIBODIES 0.2 AI (0.0-0.9)
== END ==
LOC: M LAB 08:33
PROVIDERS: ATTEND Internal Medicine Gastroenterology
DX: K74.60 Unspecified cirrhosis of liver (principal)

== ENCOUNTER → 2020-10-17 | Outpatient (REF) | payer MEDICARE ==
[2020-10-17 13:51] LABS: INR 1.39; PROTHROMBIN TIME 17.4 SECONDS (12.5-14.3)
== END ==
LOC: M LAB REF 12:45
PROVIDERS: ATTEND Internal Medicine
DX: K70.31 Alcoholic cirrhosis of liver with ascites (principal)

== ENCOUNTER → 2020-12-15 | Outpatient (REF) | payer MEDICARE ==
[2020-12-15 11:39] LABS: INR 1.43; PROTHROMBIN TIME 17.7 SECONDS (12.5-14.3)
== END ==
LOC: M LAB REF 11:11
PROVIDERS: ATTEND Internal Medicine
DX: K70.31 Alcoholic cirrhosis of liver with ascites (principal)

== ENCOUNTER → 2021-02-16 | Outpatient (REF) | payer MEDICARE ==
[2021-02-16 12:44] LABS: INR 1.27; PROTHROMBIN TIME 16.2 SECONDS (12.5-14.3)
== END ==
LOC: M LAB REF 11:08
PROVIDERS: ATTEND Internal Medicine
DX: K70.31 Alcoholic cirrhosis of liver with ascites (principal)

== ENCOUNTER → 2021-08-01 | Outpatient (REF) | payer MEDICARE | LOC: M LAB REF 16:19 | PROVIDERS: ATTEND Internal Medicine | DX: K70.31 Alcoholic cirrhosis of liver with ascites (principal) ==

== ENCOUNTER → 2021-08-13 | Outpatient (CLI) | payer MEDICARE ==
--- NOTE | 2021-08-13 09:25 | REP ---
INDICATION: SHORTNESS OF BREATH COMPARISON: 06/19/2020 TECHNIQUE: PA and lateral. FINDINGS: The mediastinum and cardiac silhouette are normal/stable. Evidence for prior sternotomy again noted. The lung coelho are clear and without acute consolidation, effusion, or pneumothorax. The skeletal structures are intact and normal. IMPRESSION: No acute cardiopulmonary process. <Electronically signed by Mckinley Bingham > 08/13/21 0937
--- NOTE | 2021-08-13 09:26 | REP ---
INDICATION: cirrhosis COMPARISON: 05/11/2020 TECHNIQUE: Real time hodge scale ultrasound examination using curved array transducer. FINDINGS: Liver again demonstrates coarsened echotexture consistent with given history of cirrhosis. No focal hepatic lesions are identified. Pancreas is incompletely evaluated due to interposed bowel gas. The gallbladder is surgically absent. No biliary ductal dilatation is appreciated and the common bile duct measures 4.0 mm diameter. Right kidney is normal in reniform shape without hydronephrosis and measures 10.9 x 4.7 x 4.7 cm. No ascites in the visualized right upper quadrant. IMPRESSION: Findings consistent with cirrhosis. No focal hepatic lesion identified. No ascites in the right upper quadrant. <Electronically signed by Mckinley Bingham > 08/13/21 0948
== END ==
LOC: M RAD 08:36
PROVIDERS: ATTEND Internal Medicine
DX: K70.31 Alcoholic cirrhosis of liver with ascites (principal); R06.02 Shortness of breath

== ENCOUNTER → 2021-11-07 | Outpatient (REF) | payer MEDICARE ==
[~2021-11-07] MED LIST changes: -D 202000 PO; +OMEP-173 PO; -OMEP-218 PO; +VITA200032 PO
[2021-11-07 17:15] LABS: PERCENT SATURATION 16.4 % (19.7-50.0)
== END ==
LOC: M LAB REF 16:03
PROVIDERS: ATTEND Internal Medicine
DX: D64.9 Anemia, unspecified (principal)

== ENCOUNTER → 2022-02-27 | Outpatient (REF) | payer MEDICARE ==
[2022-02-27 13:03] LABS: INR 1.43; PROTHROMBIN TIME 17.9 SECONDS (12.7-14.5)
[2022-02-27 17:06] LABS: BACTERIA, URINE AUTO NEGATIVE (NEGATIVE); RBC, URINE AUTO 18 /HPF (0-3); SQUAMOUS EPITHELIAL CELL UR AU 0 /HPF (0-6); WBC, URINE AUTO 66 /HPF (0-3)
== END ==
LOC: M LAB REF 12:26
PROVIDERS: ATTEND Internal Medicine
DX: K70.30 Alcoholic cirrhosis of liver without ascites (principal); R31.9 Hematuria, unspecified; Z79.01 Long term (current) use of anticoagulants

== ENCOUNTER → 2022-04-19 | Outpatient (REF) | payer MEDICARE ==
[~2022-04-19] MED LIST changes: +RISP0.5T21 PO; +VENTAER INH
== END ==
LOC: M LAB REF 13:30
PROVIDERS: ATTEND Nurse Practitioner Adult Health
DX: Z13.810 Encounter for screening for upper gastrointestinal disorder (principal); Z87.19 Personal history of other diseases of the digestive system

== ENCOUNTER → 2022-05-07 | Outpatient (REF) | payer MEDICARE ==
[2022-05-07 12:40] LABS: PERCENT SATURATION 12.9 % (19.7-50.0)
== END ==
LOC: M LAB REF 11:05
PROVIDERS: ATTEND Internal Medicine
DX: K70.30 Alcoholic cirrhosis of liver without ascites (principal); N18.31 Chronic kidney disease, stage 3a

== ENCOUNTER → 2022-05-21 | Outpatient (CLI) | payer MEDICARE ==
[~2022-05-21] VITALS: Ht 170.2 cm; Wt 54.0 kg
[2022-05-21 10:17] VITALS: BP 107/58
== END ==
LOC: M PAL 09:49
PROVIDERS: ATTEND Nurse Practitioner Adult Health
DX: K74.69 Other cirrhosis of liver (principal); K76.9 Liver disease, unspecified; D69.6 Thrombocytopenia, unspecified; D64.9 Anemia, unspecified; R63.4 Abnormal weight loss; J44.9 Chronic obstructive pulmonary disease, unspecified; R11.0 Nausea; R15.9 Full incontinence of feces; R41.89 Other symptoms and signs involving cognitive functions and awareness; R54 Age-related physical debility; R32 Unspecified urinary incontinence; Z51.5 Encounter for palliative care; Z79.51 Long term (current) use of inhaled steroids; Z88.0 Allergy status to penicillin; Z88.8 Allergy status to other drugs, medicaments and biological substances; Z79.899 Other long term (current) drug therapy; Z79.82 Long term (current) use of aspirin

== ENCOUNTER → 2022-05-30 | Outpatient (REF) | payer MEDICARE ==
[2022-05-30 13:25] LABS: INR 1.48; PROTHROMBIN TIME 18.4 SECONDS (12.7-14.5)
[2022-05-30 13:44] LABS: PERCENT SATURATION 12.5 % (19.7-50.0)
== END ==
LOC: M LAB REF 12:00
PROVIDERS: ATTEND Internal Medicine
DX: K70.30 Alcoholic cirrhosis of liver without ascites (principal); D50.9 Iron deficiency anemia, unspecified

== ENCOUNTER → 2022-07-09 | Outpatient (REF) | payer MEDICARE | LOC: M LAB REF 09:02 | PROVIDERS: ATTEND Internal Medicine | DX: R19.7 Diarrhea, unspecified (principal) ==